=== PATIENT | male | born 1960 | race Caucasian/White ===

== ENCOUNTER 2018-10-22 14:27 | Inpatient (IN) | payer MEDICARE, MEDICAID ==
[~2018-10-22] VITALS: Ht 170.2 cm; Wt 68.9 kg
[2018-10-22] VITALS (21 sets, daily range): BP systolic 80–99; BP diastolic 48–70
[2018-10-22] MEDS: ACETYLCYSTEINE 100MG/ML 10% VIAL 4ML INH SCH (00:34)
[2018-10-22] MEDS ORDERED: ACETAMINOPHEN 650MG SUPP PR STA (15:05)
[2018-10-22] MEDS ORDERED: PIPERACILLIN/TAZ 3.375G PREMIX 50 ML IV ONE (15:15)
[2018-10-22] MEDS ORDERED: ETOMIDATE 2MG/ML 10ML VIAL IV ONE (15:15)
[2018-10-22] MEDS ORDERED: PROPOFOL 10MG/ML 100ML 100 ML IV ONE (15:15)
[2018-10-22] MEDS ORDERED: SODIUM CHLORIDE 0.9% 1000ML BAG (SEPSIS BOLUS) IV ONE (15:15)
[2018-10-22] MEDS ORDERED: VECURONIUM BROMIDE 10 MG/VIAL IV ONE (15:15)
[2018-10-22] MEDS ORDERED: VANCOMYCIN 1 G PREMIX 200 ML IV ONE (15:15)
[2018-10-22] MEDS ORDERED: SUCCINYLCHOLINE CHLORIDE 200MG/10ML IV ONE (15:15)
[2018-10-22] MEDS ORDERED: HYDROCORTISONE SOD SUCCINATE 100 MG/2 ML VIAL IV ONE (15:15)
[2018-10-22 15:25] LABS: HEMATOCRIT. 47.6 % (42.0-52.0); HEMOGLOBIN. 16.1 g/dL (14.0-18.0); MEAN CORPUSCULAR HEMOGLOBIN 31.6 pg (28.0-32.0); MEAN CORPUSCULAR VOLUME 93.2 fL (80.0-94.0); MEAN PLATELET VOLUME 8.9 fl (7.4-10.4); PLATELET 395 x1000/uL (130-400); RED BLOOD CELL COUNT 5.11 mill/uL (4.7-6.1); RED CELL DISTRIBUTION WIDTH 13.2 % (11.6-14.6)
[2018-10-22 15:33] LABS: INR 1.1; PROTHROMBIN TIME 11.5 sec (9.6-11.0)
[2018-10-22 15:35] LABS: CHLORIDE 104 mEq/L (98-107)
[2018-10-22 15:53] LABS: BG CARBOXYHEMOGLOBIN 0.1 % (0.5-1.5); BG DEOXYHEMOGLOBIN 1.7 % (0.0-5.0); BG FRACTION INSPIRED OXYGEN 100; BG HCO3 ACT 21.5 mmol/L (22.0-26.0); BG METHEMOGLOBIN 0.5 % (0.0-1.5); BG OXYGEN SATURATION 98.3 % (92.0-98.5); BG OXYHEMOGLOBIN 97.7 % (94.0-97.0); BG PCO2 40.6 mmHg (35.0-45.0); BG PH 7.341 (7.350-7.450); BG PO2 131.1 mmHg (75.0-100.0); BG SAMPLE SITE RIGHT RADIAL; BG TIDAL VOLUME(mL) 600 mL; BG TOTAL HEMOGLOBIN 16.9 g/dL (12.0-18.0); BG VENT MODE VENT - A/C; BG VENT RATE 12 set
[2018-10-22] MEDS ORDERED: IPRATROPIUM/ALBUTEROL 0.5-3(2.5)MG/3ML NEB HHN PRN (16:15)
[2018-10-22] MEDS ORDERED: PIPERACILLIN/TAZOBACTAM 3.375 G in DEXT 5% WATER 100 ML IV SCH (16:15)
[2018-10-22 16:25] LABS: CLARITY URINE TURBID (CLEAR); COLOR URINE DARK YELLOW (YELLOW); KETONES URINE TRACE (NEGATIVE); LEUKOCYTE ESTERASE URINE TRACE (NEGATIVE); NITRITE URINE NEGATIVE (NEGATIVE); OCCULT BLOOD URINE 3+ (NEGATIVE); PROTEIN URINE 2+ (NEGATIVE); SPECIFIC GRAVITY URINE 1.033 (1.005-1.030)
[2018-10-22] MEDS ORDERED: PIPERACILLIN/TAZ 3.375G PREMIX 50 ML IV SCH (16:30)
[2018-10-22] MEDS ORDERED: ENOXAPARIN 40MG/0.4ML SYR SUBCUT SCH (16:30)
[2018-10-22] MEDS ORDERED: LORAZEPAM 2MG/ML CPJ IV PRN (16:30)
[2018-10-22] MEDS ORDERED: ONDANSETRON HCL 4MG/2ML INJ IV PRN (16:30)
[2018-10-22 16:33] LABS: PLATELET ESTIMATE NORMAL
[2018-10-22 16:45] LABS: *AMPHETAMINES SCREEN URINE NEGATIVE (NEGATIVE); *BARBITURATES SCREEN URINE NEGATIVE (NEGATIVE); *BENZODIAZEPINES SCREEN URINE NEGATIVE (NEGATIVE); *COCAINE SCREEN URINE NEGATIVE (NEGATIVE)
[2018-10-22 16:46] LABS: CANNABINOID URINE SCREEN NEGATIVE (NEGATIVE); METHADONE URINE SCREEN NEGATIVE (NEGATIVE); OPIATES URINE SCREEN NEGATIVE (NEGATIVE); PHENCYCLIDINE URINE SCREEN NEGATIVE (NEGATIVE)
[2018-10-22] MEDS: SODIUM CHLORIDE 0.45% 1,000 ML IV SCH (17:18)
[2018-10-22 17:59] LABS: CARBAMAZEPINE < 0.5 ug/mL (4-12); PHENOBARBITAL < 2.1 ug/mL (15.0-40.0)
[2018-10-22] MEDS ORDERED: LEVETIRACETAM 500MG PREMIX 100 ML IV SCH (18:00)
[2018-10-22] MEDS ORDERED: DEXTROSE 50% WATER 50ML SYRINGE IV PRN (19:45)
[2018-10-22] MEDS: IPRATROPIUM/ALBUTEROL 0.5-3(2.5)MG/3ML NEB HHN SCH (20:15)
[2018-10-22] MEDS: ENOXAPARIN 40MG/0.4ML SYR SUBCUT SCH (20:18)
[2018-10-22] MEDS: LEVETIRACETAM 500MG in SODIUM CHLORIDE 0.9% 100ML IV SCH (20:19)
[2018-10-22] MEDS: PIPERACILLIN/TAZOBACTAM 3.375 G in DEXT 5% WATER 100 ML IV SCH (20:19)
[2018-10-22] MEDS ORDERED: INSULIN LISPRO 100 UNITS/ML SUBCUT SCH (21:00)
[2018-10-22] MEDS ORDERED: PHENYLEPHRINE 20 MG in DEXT 5% WATER 248 ML IV PRN (22:15)
[2018-10-22] MEDS: VANCOMYCIN 750 MG PREMIX 150 ML IV SCH (23:43)
[2018-10-22] MEDS: BLOOD SUGAR DIAGNOSTIC STRIP TEST SCH (23:44)
[2018-10-23] VITALS (105 sets, daily range): BP systolic 67–146; BP diastolic 39–86
[2018-10-23] MEDS ORDERED: INSULIN LISPRO 100 UNITS/ML SUBCUT SCH
[2018-10-23] MEDS: IPRATROPIUM/ALBUTEROL 0.5-3(2.5)MG/3ML NEB HHN SCH ×6 (00:35→20:54)
[2018-10-23] MEDS: PHENYLEPHRINE 40 MG in DEXT 5% WATER 246 ML IV PRN ×2 (02:06→07:02)
[2018-10-23] MEDS: PIPERACILLIN/TAZOBACTAM 3.375 G in DEXT 5% WATER 100 ML IV SCH ×4 (02:06→20:31)
[2018-10-23] MEDS: INSULIN LISPRO 100 UNITS/ML SUBCUT SCH ×5 (05:27→23:38)
[2018-10-23] MEDS: BLOOD SUGAR DIAGNOSTIC STRIP TEST SCH ×4 (05:28→23:38)
[2018-10-23 05:29] LABS: CHLORIDE 105 mEq/L (98-107)
[2018-10-23 05:34] LABS: PHOSPHORUS 2.3 mg/dL (2.5-4.9)
[2018-10-23] MEDS: SODIUM CHLORIDE 0.45% 1,000 ML IV SCH (05:39)
[2018-10-23 05:40] LABS: CREATINE KINASE MB FRACTION 2.7 ng/mL (0.5-3.6)
[2018-10-23] MEDS: VANCOMYCIN 750 MG PREMIX 150 ML IV SCH ×3 (07:52→23:40)
[2018-10-23] MEDS: FAMOTIDINE 20MG/2ML VIAL IV SCH (07:52)
[2018-10-23] MEDS ORDERED: DOCUSATE SODIUM 100MG CAPSULE PO SCH (09:00)
[2018-10-23] MEDS: ACETYLCYSTEINE 100MG/ML 10% VIAL 4ML INH SCH ×2 (09:01→16:38)
[2018-10-23 09:58] LABS: BG BASE EXCESS -1.5 mmol/L (-2.0-2.0); BG CARBOXYHEMOGLOBIN 0.2 % (0.5-1.5); BG DEOXYHEMOGLOBIN 2.9 % (0.0-5.0); BG FRACTION INSPIRED OXYGEN 100; BG HCO3 ACT 21.4 mmol/L (22.0-26.0); BG METHEMOGLOBIN 0.3 % (0.0-1.5); BG OXYGEN SATURATION 97.1 % (92.0-98.5); BG OXYHEMOGLOBIN 96.6 % (94.0-97.0); BG PH 7.456 (7.350-7.450); BG PO2 83.9 mmHg (75.0-100.0); BG SAMPLE SITE RIGHT BRACHIAL; BG TIDAL VOLUME(mL) 500 mL; BG TOTAL HEMOGLOBIN 14.6 g/dL (12.0-18.0); BG VENT MODE VENT - A/C; BG VENT RATE 12 set
[2018-10-23] MEDS: PROPOFOL 10MG/ML 100ML 100 ML IV PRN ×3 (10:14→10:16)
[2018-10-23] MEDS: LEVETIRACETAM 500MG in SODIUM CHLORIDE 0.9% 100ML IV SCH ×2 (10:15→20:53)
[2018-10-23] MEDS: SODIUM CHLORIDE 0.9% 1,000 ML IV SCH ×2 (10:52→20:32)
[2018-10-23] MEDS: PHENYLEPHRINE 80 MG in DEXT 5% WATER 492 ML IV PRN ×2 (11:05→19:31)
[2018-10-23] MEDS: DOCUSATE SODIUM SUGAR FREE 100MG/10ML UDC NG SCH ×2 (11:07→17:11)
[2018-10-23] MEDS: NOREPINEPHRINE 16 MG in DEXT 5% WATER 234 ML IV PRN ×2 (11:41→21:59)
[2018-10-23] MEDS: FENTANYL CITRATE/PF 500 MCG in SODIUM CHLORIDE 0.9% 40 ML IV PRN ×3 (12:02→22:01)
[2018-10-23 13:10] LABS: HEMATOCRIT. 37.9 % (42.0-52.0); HEMOGLOBIN. 12.9 g/dL (14.0-18.0); MEAN CORPUSCULAR HEMOGLOBIN 31.2 pg (28.0-32.0); MEAN CORPUSCULAR VOLUME 91.8 fL (80.0-94.0); MEAN PLATELET VOLUME 8.4 fl (7.4-10.4); PLATELET 305 x1000/uL (130-400); RED BLOOD CELL COUNT 4.13 mill/uL (4.7-6.1); RED CELL DISTRIBUTION WIDTH 13.2 % (11.6-14.6)
[2018-10-23] MEDS: POTASSIUM-SODIUM PHOSPHATE POWDER PACKET GT SCH (17:11)
[2018-10-23 17:23] LABS: PLATELET ESTIMATE NORMAL
[2018-10-23] MEDS: ENOXAPARIN 40MG/0.4ML SYR SUBCUT SCH (20:31)
[2018-10-24] VITALS (95 sets, daily range): BP systolic 71–145; BP diastolic 50–93
[2018-10-24] MEDS: ACETYLCYSTEINE 100MG/ML 10% VIAL 4ML INH SCH ×3 (00:43→15:56)
[2018-10-24] MEDS: IPRATROPIUM/ALBUTEROL 0.5-3(2.5)MG/3ML NEB HHN SCH ×6 (00:44→20:14)
[2018-10-24] MEDS: PIPERACILLIN/TAZOBACTAM 3.375 G in DEXT 5% WATER 100 ML IV SCH ×4 (03:25→20:38)
[2018-10-24] MEDS: FENTANYL CITRATE/PF 500 MCG in SODIUM CHLORIDE 0.9% 40 ML IV PRN ×4 (03:26→20:58)
[2018-10-24] MEDS: PHENYLEPHRINE 80 MG in DEXT 5% WATER 492 ML IV PRN ×2 (05:30→19:10)
[2018-10-24] MEDS: BLOOD SUGAR DIAGNOSTIC STRIP TEST SCH ×4 (05:30→23:44)
[2018-10-24] MEDS: INSULIN LISPRO 100 UNITS/ML SUBCUT SCH ×3 (05:30→18:00)
[2018-10-24] MEDS: SODIUM CHLORIDE 0.9% 1,000 ML IV SCH ×3 (05:31→23:45)
[2018-10-24 06:34] LABS: HEMATOCRIT. 32.5 % (42.0-52.0); HEMOGLOBIN. 11.2 g/dL (14.0-18.0); MEAN CORPUSCULAR HEMOGLOBIN 30.9 pg (28.0-32.0); MEAN CORPUSCULAR VOLUME 89.9 fL (80.0-94.0); MEAN PLATELET VOLUME 8.4 fl (7.4-10.4); PLATELET 271 x1000/uL (130-400); RED BLOOD CELL COUNT 3.61 mill/uL (4.7-6.1); RED CELL DISTRIBUTION WIDTH 13.1 % (11.6-14.6)
[2018-10-24 06:51] LABS: CHLORIDE 101 mEq/L (98-107)
[2018-10-24 06:57] LABS: PHOSPHORUS 1.5 mg/dL (2.5-4.9)
[2018-10-24 06:59] LABS: VANCOMYCIN TROUGH 14.5 ug/mL (5.0-10.0)
[2018-10-24 08:10] LABS: BG BASE EXCESS -1.6 mmol/L (-2.0-2.0); BG CARBOXYHEMOGLOBIN 0.3 % (0.5-1.5); BG DEOXYHEMOGLOBIN 6.1 % (0.0-5.0); BG FRACTION INSPIRED OXYGEN 50; BG HCO3 ACT 22.7 mmol/L (22.0-26.0); BG METHEMOGLOBIN 0.7 % (0.0-1.5); BG OXYGEN SATURATION 93.8 % (92.0-98.5); BG OXYHEMOGLOBIN 92.9 % (94.0-97.0); BG PH 7.405 (7.350-7.450); BG PO2 67.4 mmHg (75.0-100.0); BG SAMPLE SITE RIGHT BRACHIAL; BG TIDAL VOLUME(mL) 500 mL; BG TOTAL HEMOGLOBIN 13.8 g/dL (12.0-18.0); BG VENT MODE VENT - A/C; BG VENT RATE 12 set
[2018-10-24] MEDS: VANCOMYCIN 750 MG PREMIX 150 ML IV SCH (08:44)
[2018-10-24] MEDS: POTASSIUM-SODIUM PHOSPHATE POWDER PACKET GT SCH ×2 (08:50→17:39)
[2018-10-24] MEDS: FAMOTIDINE 20MG/2ML VIAL IV SCH (08:50)
[2018-10-24] MEDS: DOCUSATE SODIUM SUGAR FREE 100MG/10ML UDC NG SCH ×2 (08:50→17:39)
[2018-10-24] MEDS ORDERED: DOCUSATE SODIUM SUGAR FREE 100MG/10ML UDC NG SCH (09:00)
[2018-10-24 10:19] LABS: PLATELET ESTIMATE NORMAL
[2018-10-24] MEDS: LEVETIRACETAM 500MG in SODIUM CHLORIDE 0.9% 100ML IV SCH ×2 (11:21→20:38)
[2018-10-24] MEDS: NOREPINEPHRINE 16 MG in DEXT 5% WATER 234 ML IV PRN ×2 (11:28→23:45)
[2018-10-24] MEDS ORDERED: POTASSIUM CHLORIDE INJ 40 MEQ in DEXT 5% WATER 250 ML IV SCH (11:30)
[2018-10-24] MEDS: VANCOMYCIN 1 G PREMIX 200 ML IV SCH ×2 (13:41→21:23)
[2018-10-24] MEDS: POTASSIUM-SODIUM PHOSPHATE POWDER PACKET PO SCH ×2 (14:30→17:00)
[2018-10-24 16:50] LABS: TOTAL IRON BINDING CAPACITY 236 ug/dL (250-450)
[2018-10-24] MEDS: POTASSIUM CHLORIDE 20MEQ/PACKET GT SCH (19:15)
[2018-10-24] MEDS: ENOXAPARIN 40MG/0.4ML SYR SUBCUT SCH (20:41)
[2018-10-25] VITALS (95 sets, daily range): BP systolic 86–141; BP diastolic 53–91
[2018-10-25] MEDS: IPRATROPIUM/ALBUTEROL 0.5-3(2.5)MG/3ML NEB HHN SCH ×6 (00:34→20:31)
[2018-10-25] MEDS: ACETYLCYSTEINE 100MG/ML 10% VIAL 4ML INH SCH ×3 (00:35→16:30)
[2018-10-25] MEDS: PIPERACILLIN/TAZOBACTAM 3.375 G in DEXT 5% WATER 100 ML IV SCH ×4 (02:22→21:14)
[2018-10-25] MEDS: FENTANYL CITRATE/PF 500 MCG in SODIUM CHLORIDE 0.9% 40 ML IV PRN ×4 (02:22→23:43)
[2018-10-25] MEDS: BLOOD SUGAR DIAGNOSTIC STRIP TEST SCH ×3 (05:14→17:15)
[2018-10-25] MEDS: INSULIN LISPRO 100 UNITS/ML SUBCUT SCH ×4 (05:14→17:15)
[2018-10-25] MEDS: POTASSIUM CHLORIDE 20MEQ/PACKET GT SCH ×2 (05:18→17:20)
[2018-10-25] MEDS: VANCOMYCIN 1 G PREMIX 200 ML IV SCH (05:18)
[2018-10-25 05:47] LABS: HEMATOCRIT. 32.5 % (42.0-52.0); HEMOGLOBIN. 11.2 g/dL (14.0-18.0); MEAN CORPUSCULAR HEMOGLOBIN 31.4 pg (28.0-32.0); MEAN CORPUSCULAR VOLUME 91.7 fL (80.0-94.0); MEAN PLATELET VOLUME 8.4 fl (7.4-10.4); PLATELET 256 x1000/uL (130-400); RED BLOOD CELL COUNT 3.55 mill/uL (4.7-6.1)
[2018-10-25 05:48] LABS: CHLORIDE 101 mEq/L (98-107)
[2018-10-25 05:55] LABS: PHOSPHORUS 1.6 mg/dL (2.5-4.9)
[2018-10-25] MEDS: PHENYLEPHRINE 80 MG in DEXT 5% WATER 492 ML IV PRN (07:55)
[2018-10-25] MEDS: SODIUM CHLORIDE 0.9% 1,000 ML IV SCH (07:57)
[2018-10-25] MEDS: DOCUSATE SODIUM SUGAR FREE 100MG/10ML UDC NG SCH ×2 (08:11→17:20)
[2018-10-25] MEDS: POTASSIUM-SODIUM PHOSPHATE POWDER PACKET PO SCH ×3 (08:11→17:20)
[2018-10-25] MEDS: FAMOTIDINE 20MG/2ML VIAL IV SCH (08:11)
[2018-10-25 08:20] LABS: BG BASE EXCESS 1.5 mmol/L (-2.0-2.0); BG CARBOXYHEMOGLOBIN 0.2 % (0.5-1.5); BG DEOXYHEMOGLOBIN 1.7 % (0.0-5.0); BG FRACTION INSPIRED OXYGEN 50; BG HCO3 ACT 25.5 mmol/L (22.0-26.0); BG METHEMOGLOBIN 0.8 % (0.0-1.5); BG OXYGEN SATURATION 98.3 % (92.0-98.5); BG OXYHEMOGLOBIN 97.3 % (94.0-97.0); BG PCO2 38.3 mmHg (35.0-45.0); BG PH 7.442 (7.350-7.450); BG PO2 138.5 mmHg (75.0-100.0); BG SAMPLE SITE RIGHT RADIAL; BG TIDAL VOLUME(mL) 500 mL; BG TOTAL HEMOGLOBIN 11.6 g/dL (12.0-18.0); BG VENT MODE VENT - A/C; BG VENT RATE 12 set
[2018-10-25] MEDS ORDERED: LACTULOSE 20G/30ML UDC GT SCH (08:30)
[2018-10-25] MEDS ORDERED: LACTULOSE 20G/30ML UDC PO SCH (08:30)
[2018-10-25 08:46] LABS: PLATELET ESTIMATE NORMAL
[2018-10-25] MEDS: LEVETIRACETAM 500MG in SODIUM CHLORIDE 0.9% 100ML IV SCH ×2 (08:56→20:28)
[2018-10-25] MEDS: LACTOBACILLUS GG CAPSULE GT SCH (09:20)
[2018-10-25] MEDS: POTASSIUM PHOS,M-BASIC-D-BASIC 20 MMOL in SODIUM CHLORIDE 0.9% 1,000 ML IV SCH ×2 (11:45→22:51)
[2018-10-25] MEDS: NOREPINEPHRINE 16 MG in DEXT 5% WATER 234 ML IV PRN (13:36)
[2018-10-25] MEDS: ENOXAPARIN 40MG/0.4ML SYR SUBCUT SCH (20:28)
[2018-10-26] VITALS (105 sets, daily range): BP systolic 81–175; BP diastolic 25–126
[2018-10-26] MEDS: ACETYLCYSTEINE 100MG/ML 10% VIAL 4ML INH SCH ×3 (00:06→15:25)
[2018-10-26] MEDS: IPRATROPIUM/ALBUTEROL 0.5-3(2.5)MG/3ML NEB HHN SCH ×6 (00:06→20:41)
[2018-10-26] MEDS: PIPERACILLIN/TAZOBACTAM 3.375 G in DEXT 5% WATER 100 ML IV SCH ×4 (02:43→20:19)
[2018-10-26] MEDS: NOREPINEPHRINE 16 MG in DEXT 5% WATER 234 ML IV PRN ×2 (04:04→23:32)
[2018-10-26] MEDS: FENTANYL CITRATE/PF 500 MCG in SODIUM CHLORIDE 0.9% 40 ML IV PRN ×2 (05:00→11:01)
[2018-10-26 05:18] LABS: BASOPHILS % 0.7 % (0.0-2.0); EOSINOPHILS % 4.6 % (0.0-5.0); HEMATOCRIT. 30.1 % (42.0-52.0); HEMOGLOBIN. 10.4 g/dL (14.0-18.0); MEAN CORPUSCULAR HEMOGLOBIN 31.8 pg (28.0-32.0); MEAN CORPUSCULAR VOLUME 92.1 fL (80.0-94.0); MONOCYTES % 12.9 % (2.0-8.0); NEUTROPHILS % 71.8 % (40.0-76.0); PLATELET 223 x1000/uL (130-400); RED BLOOD CELL COUNT 3.27 mill/uL (4.7-6.1)
[2018-10-26 05:27] LABS: CHLORIDE 100 mEq/L (98-107)
[2018-10-26 05:35] LABS: PHOSPHORUS 2.7 mg/dL (2.5-4.9)
[2018-10-26] MEDS: BLOOD SUGAR DIAGNOSTIC STRIP TEST SCH ×4 (05:46→17:42)
[2018-10-26] MEDS: INSULIN LISPRO 100 UNITS/ML SUBCUT SCH ×4 (05:46→17:42)
[2018-10-26] MEDS: POTASSIUM CHLORIDE 20MEQ/PACKET GT SCH ×2 (05:46→18:32)
[2018-10-26] MEDS: POTASSIUM PHOS,M-BASIC-D-BASIC 20 MMOL in SODIUM CHLORIDE 0.9% 1,000 ML IV SCH (07:49)
[2018-10-26] MEDS: LEVETIRACETAM 500MG in SODIUM CHLORIDE 0.9% 100ML IV SCH ×2 (08:21→21:36)
[2018-10-26] MEDS: FAMOTIDINE 20MG/2ML VIAL IV SCH (08:21)
[2018-10-26] MEDS: LACTOBACILLUS GG CAPSULE GT SCH (08:21)
[2018-10-26] MEDS: DOCUSATE SODIUM SUGAR FREE 100MG/10ML UDC NG SCH ×2 (08:22→16:34)
[2018-10-26] MEDS: POTASSIUM-SODIUM PHOSPHATE POWDER PACKET PO SCH ×3 (08:36→16:35)
[2018-10-26] MEDS ORDERED: SORBITOL 70% SOLN 30ML GT NR (09:00)
[2018-10-26] MEDS ORDERED: NA PHOS,M-B/NA PHOS,DI-BA ENEMA 118ML PR NR (09:00)
[2018-10-26 09:17] LABS: BG BASE EXCESS 1.8 mmol/L (-2.0-2.0); BG CARBOXYHEMOGLOBIN 0.3 % (0.5-1.5); BG DEOXYHEMOGLOBIN 1.2 % (0.0-5.0); BG FRACTION INSPIRED OXYGEN 40; BG HCO3 ACT 26.4 mmol/L (22.0-26.0); BG METHEMOGLOBIN 0.1 % (0.0-1.5); BG OXYGEN SATURATION 98.8 % (92.0-98.5); BG OXYHEMOGLOBIN 98.4 % (94.0-97.0); BG PH 7.426 (7.350-7.450); BG PO2 155.6 mmHg (75.0-100.0); BG SAMPLE SITE RIGHT BRACHIAL; BG TIDAL VOLUME(mL) 500 mL; BG TOTAL HEMOGLOBIN 11.2 g/dL (12.0-18.0); BG VENT MODE VENT - A/C; BG VENT RATE 12 set
[2018-10-26] MEDS: MIDODRINE HCL 5MG TABLET GT SCH ×3 (09:42→16:35)
[2018-10-26] MEDS: LORAZEPAM 2MG/ML CPJ IV PRN ×2 (10:44→16:34)
[2018-10-26] MEDS: AMIKACIN SULFATE 750 MG in SODIUM CHLORIDE 0.9% 100 ML IV SCH (18:32)
[2018-10-26 19:15] LABS: BARBITURATE SCREEN Negative ug/mL (Cutoff:0.1); BENZODIAZEPINE SCREEN Negative ng/mL (Cutoff:20); OPIATES SCREEN Negative ng/mL (Cutoff:5); PHENCYCLIDINE SCREEN Negative ng/mL (Cutoff:8)
[2018-10-26] MEDS: ENOXAPARIN 40MG/0.4ML SYR SUBCUT SCH (20:23)
[2018-10-27] VITALS (80 sets, daily range): BP systolic 85–142; BP diastolic 29–94
[2018-10-27] MEDS: IPRATROPIUM/ALBUTEROL 0.5-3(2.5)MG/3ML NEB HHN SCH ×6 (00:27→20:21)
[2018-10-27] MEDS: ACETYLCYSTEINE 100MG/ML 10% VIAL 4ML INH SCH ×3 (00:28→15:31)
[2018-10-27] MEDS: LORAZEPAM 2MG/ML CPJ IV PRN (02:06)
[2018-10-27] MEDS: PIPERACILLIN/TAZOBACTAM 3.375 G in DEXT 5% WATER 100 ML IV SCH (02:23)
[2018-10-27] MEDS: POTASSIUM CHLORIDE 20MEQ/PACKET GT SCH ×2 (05:12→17:19)
[2018-10-27] MEDS: AMIKACIN SULFATE 750 MG in SODIUM CHLORIDE 0.9% 100 ML IV SCH ×2 (05:13→17:18)
[2018-10-27 05:19] LABS: BASOPHILS % 0.6 % (0.0-2.0); EOSINOPHILS % 3.7 % (0.0-5.0); HEMATOCRIT. 30.2 % (42.0-52.0); HEMOGLOBIN. 10.5 g/dL (14.0-18.0); MEAN CORPUSCULAR HEMOGLOBIN 31.6 pg (28.0-32.0); MEAN CORPUSCULAR VOLUME 90.8 fL (80.0-94.0); MEAN PLATELET VOLUME 8.1 fl (7.4-10.4); MONOCYTES % 12.7 % (2.0-8.0); PLATELET 255 x1000/uL (130-400); RED BLOOD CELL COUNT 3.32 mill/uL (4.7-6.1)
[2018-10-27] MEDS: BLOOD SUGAR DIAGNOSTIC STRIP TEST SCH ×4 (05:22→18:00)
[2018-10-27] MEDS: INSULIN LISPRO 100 UNITS/ML SUBCUT SCH ×4 (05:22→18:00)
[2018-10-27 05:23] LABS: CHLORIDE 99 mEq/L (98-107)
[2018-10-27 05:29] LABS: PHOSPHORUS 2.7 mg/dL (2.5-4.9)
[2018-10-27] MEDS: POTASSIUM-SODIUM PHOSPHATE POWDER PACKET PO SCH ×3 (08:44→17:19)
[2018-10-27] MEDS: FAMOTIDINE 20MG/2ML VIAL IV SCH (08:44)
[2018-10-27] MEDS: LACTOBACILLUS GG CAPSULE GT SCH (08:44)
[2018-10-27] MEDS: DOCUSATE SODIUM SUGAR FREE 100MG/10ML UDC NG SCH ×2 (08:44→17:18)
[2018-10-27] MEDS: MIDODRINE HCL 5MG TABLET GT SCH ×3 (08:48→17:19)
[2018-10-27 08:49] LABS: BG BASE EXCESS 2.2 mmol/L (-2.0-2.0); BG CARBOXYHEMOGLOBIN 0.3 % (0.5-1.5); BG DEOXYHEMOGLOBIN 1.3 % (0.0-5.0); BG FRACTION INSPIRED OXYGEN 40; BG HCO3 ACT 26.1 mmol/L (22.0-26.0); BG METHEMOGLOBIN 0.3 % (0.0-1.5); BG OXYGEN SATURATION 98.7 % (92.0-98.5); BG OXYHEMOGLOBIN 98.1 % (94.0-97.0); BG PCO2 37.9 mmHg (35.0-45.0); BG PH 7.456 (7.350-7.450); BG PO2 132.1 mmHg (75.0-100.0); BG PRESSURE SUPPORT 12; BG SAMPLE SITE RIGHT RADIAL; BG TIDAL VOLUME(mL) 500 mL; BG TOTAL HEMOGLOBIN 11.3 g/dL (12.0-18.0); BG VENT MODE VENT - SIMV; BG VENT RATE 8 set
[2018-10-27] MEDS: LEVETIRACETAM 500MG TABLET PO SCH ×2 (08:49→19:56)
[2018-10-27 13:39] LABS: BG BASE EXCESS 4.4 mmol/L (-2.0-2.0); BG CARBOXYHEMOGLOBIN 0.3 % (0.5-1.5); BG DEOXYHEMOGLOBIN 1.6 % (0.0-5.0); BG FRACTION INSPIRED OXYGEN 35; BG HCO3 ACT 27.9 mmol/L (22.0-26.0); BG METHEMOGLOBIN 0.2 % (0.0-1.5); BG OXYGEN SATURATION 98.4 % (92.0-98.5); BG OXYHEMOGLOBIN 97.9 % (94.0-97.0); BG PCO2 37.3 mmHg (35.0-45.0); BG PH 7.491 (7.350-7.450); BG PO2 116.9 mmHg (75.0-100.0); BG PRESSURE SUPPORT 8; BG SAMPLE SITE RIGHT BRACHIAL; BG TOTAL HEMOGLOBIN 11.6 g/dL (12.0-18.0); BG VENT MODE VENT - CPAP
[2018-10-27] MEDS ORDERED: LORAZEPAM 2MG/ML CPJ IV NR (15:30)
[2018-10-27] MEDS: NOREPINEPHRINE 16 MG in DEXT 5% WATER 234 ML IV PRN (18:48)
[2018-10-27] MEDS: ENOXAPARIN 40MG/0.4ML SYR SUBCUT SCH (19:56)
[2018-10-28] VITALS (44 sets, daily range): BP systolic 80–160; BP diastolic 51–91
[2018-10-28] MEDS: BLOOD SUGAR DIAGNOSTIC STRIP TEST SCH ×4 (00:03→17:41)
[2018-10-28] MEDS: IPRATROPIUM/ALBUTEROL 0.5-3(2.5)MG/3ML NEB HHN SCH ×6 (00:26→20:44)
[2018-10-28] MEDS: ACETAMINOPHEN 650MG/20.3ML UDC GT PRN ×2 (01:08→06:31)
[2018-10-28 05:17] LABS: HEMOGLOBIN. 10.8 g/dL (14.0-18.0); MEAN CORPUSCULAR HEMOGLOBIN 31.6 pg (28.0-32.0); MEAN CORPUSCULAR VOLUME 90.9 fL (80.0-94.0); PLATELET 281 x1000/uL (130-400); RED BLOOD CELL COUNT 3.42 mill/uL (4.7-6.1); RED CELL DISTRIBUTION WIDTH 12.9 % (11.6-14.6)
[2018-10-28 05:20] LABS: CHLORIDE 102 mEq/L (98-107)
[2018-10-28 05:27] LABS: PHOSPHORUS 3.4 mg/dL (2.5-4.9)
[2018-10-28] MEDS: INSULIN LISPRO 100 UNITS/ML SUBCUT SCH ×4 (06:00→17:40)
[2018-10-28] MEDS: POTASSIUM CHLORIDE 20MEQ/PACKET GT SCH ×2 (06:31→17:03)
[2018-10-28] MEDS: AMIKACIN SULFATE 750 MG in SODIUM CHLORIDE 0.9% 100 ML IV SCH (07:40)
[2018-10-28 08:45] LABS: BG BASE EXCESS 0.2 mmol/L (-2.0-2.0); BG CARBOXYHEMOGLOBIN 0.3 % (0.5-1.5); BG DEOXYHEMOGLOBIN 4.1 % (0.0-5.0); BG FRACTION INSPIRED OXYGEN 21; BG HCO3 ACT 22.5 mmol/L (22.0-26.0); BG METHEMOGLOBIN 0.2 % (0.0-1.5); BG OXYGEN SATURATION 95.9 % (92.0-98.5); BG OXYHEMOGLOBIN 95.4 % (94.0-97.0); BG PCO2 29.4 mmHg (35.0-45.0); BG PH 7.502 (7.350-7.450); BG PO2 78.1 mmHg (75.0-100.0); BG SAMPLE SITE RIGHT BRACHIAL; BG TOTAL HEMOGLOBIN 11.9 g/dL (12.0-18.0); BG VENT MODE ROOM AIR
[2018-10-28] MEDS ORDERED: FLUDROCORTISONE ACETATE 0.1MG TABLET PO SCH (09:15)
[2018-10-28] MEDS: LEVETIRACETAM 500MG TABLET PO SCH ×2 (09:17→21:33)
[2018-10-28] MEDS: POTASSIUM-SODIUM PHOSPHATE POWDER PACKET PO SCH ×3 (09:17→17:03)
[2018-10-28] MEDS: DOCUSATE SODIUM SUGAR FREE 100MG/10ML UDC NG SCH ×2 (09:18→17:00)
[2018-10-28] MEDS: LACTOBACILLUS GG CAPSULE GT SCH (09:18)
[2018-10-28] MEDS: FAMOTIDINE 20MG/2ML VIAL IV SCH (09:18)
[2018-10-28] MEDS: MIDODRINE HCL 5MG TABLET GT SCH ×4 (09:27→21:33)
[2018-10-28 10:22] LABS: PLATELET ESTIMATE NORMAL
[2018-10-28] MEDS: ACETYLCYSTEINE 100MG/ML 10% VIAL 4ML INH SCH (15:10)
[2018-10-28] MEDS ORDERED: AMIKACIN SULFATE 600 MG in SODIUM CHLORIDE 0.9% 100 ML IV SCH (21:00)
[2018-10-28] MEDS: ENOXAPARIN 40MG/0.4ML SYR SUBCUT SCH (21:34)
[2018-10-29] VITALS (50 sets, daily range): BP systolic 83–116; BP diastolic 31–74
[2018-10-29] MEDS: IPRATROPIUM/ALBUTEROL 0.5-3(2.5)MG/3ML NEB HHN SCH ×5 (00:15→20:59)
[2018-10-29 05:29] LABS: BASOPHILS % 1.1 % (0.0-2.0); EOSINOPHILS % 2.8 % (0.0-5.0); HEMATOCRIT. 31.6 % (42.0-52.0); HEMOGLOBIN. 10.9 g/dL (14.0-18.0); LYMPHOCYTES % 11.3 % (20.0-50.0); MEAN CORPUSCULAR HEMOGLOBIN 31.5 pg (28.0-32.0); MEAN CORPUSCULAR VOLUME 91.4 fL (80.0-94.0); MEAN PLATELET VOLUME 7.8 fl (7.4-10.4); MONOCYTES % 11.4 % (2.0-8.0); NEUTROPHILS % 73.4 % (40.0-76.0); PLATELET 332 x1000/uL (130-400); RED BLOOD CELL COUNT 3.46 mill/uL (4.7-6.1); RED CELL DISTRIBUTION WIDTH 13.3 % (11.6-14.6)
[2018-10-29] MEDS: NOREPINEPHRINE 16 MG in DEXT 5% WATER 234 ML IV PRN (05:33)
[2018-10-29] MEDS: POTASSIUM CHLORIDE 20MEQ/PACKET GT SCH ×2 (05:37→20:44)
[2018-10-29 05:41] LABS: CHLORIDE 105 mEq/L (98-107)
[2018-10-29] MEDS: BLOOD SUGAR DIAGNOSTIC STRIP TEST SCH ×4 (06:00→18:00)
[2018-10-29] MEDS: INSULIN LISPRO 100 UNITS/ML SUBCUT SCH ×3 (06:00→11:58)
[2018-10-29] MEDS: LEVETIRACETAM 500MG TABLET PO SCH ×2 (08:50→20:43)
[2018-10-29] MEDS: FAMOTIDINE 20MG/2ML VIAL IV SCH (08:50)
[2018-10-29] MEDS: LACTOBACILLUS GG CAPSULE GT SCH (08:50)
[2018-10-29] MEDS: POTASSIUM-SODIUM PHOSPHATE POWDER PACKET PO SCH ×3 (08:50→16:35)
[2018-10-29] MEDS: DOCUSATE SODIUM SUGAR FREE 100MG/10ML UDC NG SCH ×2 (08:50→16:35)
[2018-10-29] MEDS: MIDODRINE HCL 5MG TABLET GT SCH ×4 (08:51→20:44)
[2018-10-29] MEDS ORDERED: FLUDROCORTISONE ACETATE 0.1MG TABLET PO SCH (09:00)
[2018-10-29] MEDS ORDERED: FLUDROCORTISONE ACETATE 0.1MG TABLET GT NR (11:15)
[2018-10-29] MEDS: GENTAMICIN SULFATE 160 MG in SODIUM CHLORIDE 0.9% 100 ML IV SCH (13:27)
[2018-10-29] MEDS: ENOXAPARIN 40MG/0.4ML SYR SUBCUT SCH (20:43)
[2018-10-30] VITALS: BP 122/76
[2018-10-30] MEDS: IPRATROPIUM/ALBUTEROL 0.5-3(2.5)MG/3ML NEB HHN SCH ×6 (00:58→20:11)
[2018-10-30] MEDS: GENTAMICIN SULFATE 160 MG in SODIUM CHLORIDE 0.9% 100 ML IV SCH ×2 (01:42→13:17)
[2018-10-30 04:00] VITALS: BP 92/62
[2018-10-30] MEDS: INSULIN LISPRO 100 UNITS/ML SUBCUT SCH ×3 (06:00→18:00)
[2018-10-30] MEDS: POTASSIUM CHLORIDE 20MEQ/PACKET GT SCH ×2 (06:07→17:09)
[2018-10-30] MEDS: BLOOD SUGAR DIAGNOSTIC STRIP TEST SCH ×4 (06:27→18:19)
[2018-10-30 07:41] LABS: BASOPHILS % 0.6 % (0.0-2.0); CHLORIDE 105 mEq/L (98-107); EOSINOPHILS % 3.6 % (0.0-5.0); HEMATOCRIT. 31.1 % (42.0-52.0); HEMOGLOBIN. 10.7 g/dL (14.0-18.0); LYMPHOCYTES % 12.4 % (20.0-50.0); MEAN CORPUSCULAR HEMOGLOBIN 31.5 pg (28.0-32.0); MEAN CORPUSCULAR VOLUME 91.5 fL (80.0-94.0); MEAN PLATELET VOLUME 7.7 fl (7.4-10.4); MONOCYTES % 11.5 % (2.0-8.0); NEUTROPHILS % 71.9 % (40.0-76.0); PLATELET 298 x1000/uL (130-400); RED CELL DISTRIBUTION WIDTH 13.5 % (11.6-14.6)
[2018-10-30 08:00] VITALS: BP 102/59
[2018-10-30] MEDS: FAMOTIDINE 20MG/2ML VIAL IV SCH (08:49)
[2018-10-30] MEDS: POTASSIUM-SODIUM PHOSPHATE POWDER PACKET PO SCH ×3 (08:51→17:09)
[2018-10-30] MEDS: LEVETIRACETAM 500MG TABLET PO SCH ×2 (08:51→20:29)
[2018-10-30] MEDS: MIDODRINE HCL 5MG TABLET GT SCH ×4 (09:03→20:33)
[2018-10-30] MEDS: DOCUSATE SODIUM SUGAR FREE 100MG/10ML UDC NG SCH ×2 (09:34→17:09)
[2018-10-30 12:00] VITALS: BP 100/65
[2018-10-30] MEDS: FLUDROCORTISONE ACETATE 0.1MG TABLET PO SCH (13:18)
[2018-10-30] MEDS: LACTOBACILLUS GG CAPSULE GT SCH (13:18)
[2018-10-30 15:42] VITALS: BP 94/57
[2018-10-30 20:00] VITALS: BP 126/70
[2018-10-30] MEDS: ENOXAPARIN 40MG/0.4ML SYR SUBCUT SCH (20:28)
[2018-10-31] VITALS: BP 130/76
[2018-10-31] MEDS: IPRATROPIUM/ALBUTEROL 0.5-3(2.5)MG/3ML NEB HHN SCH ×6 (00:11→22:09)
[2018-10-31] MEDS: BLOOD SUGAR DIAGNOSTIC STRIP TEST SCH ×4 (00:17→17:27)
[2018-10-31] MEDS: GENTAMICIN SULFATE 160 MG in SODIUM CHLORIDE 0.9% 100 ML IV SCH (01:37)
[2018-10-31 04:00] VITALS: BP 115/46
[2018-10-31] MEDS: INSULIN LISPRO 100 UNITS/ML SUBCUT SCH ×4 (06:00→17:12)
[2018-10-31] MEDS: POTASSIUM CHLORIDE 20MEQ/PACKET GT SCH ×2 (06:04→17:02)
[2018-10-31 06:37] LABS: BASOPHILS % 0.9 % (0.0-2.0); HEMATOCRIT. 32.6 % (42.0-52.0); HEMOGLOBIN. 11.2 g/dL (14.0-18.0); LYMPHOCYTES % 10.9 % (20.0-50.0); MEAN CORPUSCULAR HEMOGLOBIN 31.2 pg (28.0-32.0); MEAN CORPUSCULAR VOLUME 91.1 fL (80.0-94.0); MEAN PLATELET VOLUME 7.6 fl (7.4-10.4); NEUTROPHILS % 78.2 % (40.0-76.0); PLATELET 345 x1000/uL (130-400); RED BLOOD CELL COUNT 3.58 mill/uL (4.7-6.1); RED CELL DISTRIBUTION WIDTH 13.2 % (11.6-14.6)
[2018-10-31 06:44] LABS: CHLORIDE 108 mEq/L (98-107)
[2018-10-31 06:53] LABS: GENTAMICIN RANDOM 7.2 ug/mL
[2018-10-31 08:00] VITALS: BP 102/65
[2018-10-31] MEDS: MIDODRINE HCL 5MG TABLET GT SCH ×4 (08:16→21:34)
[2018-10-31] MEDS: FAMOTIDINE 20MG/2ML VIAL IV SCH (08:17)
[2018-10-31] MEDS: LEVETIRACETAM 500MG TABLET PO SCH ×2 (08:17→21:34)
[2018-10-31] MEDS: POTASSIUM-SODIUM PHOSPHATE POWDER PACKET PO SCH ×3 (08:17→17:02)
[2018-10-31] MEDS: DOCUSATE SODIUM SUGAR FREE 100MG/10ML UDC NG SCH ×2 (08:17→17:02)
[2018-10-31] MEDS: FLUDROCORTISONE ACETATE 0.1MG TABLET PO SCH (08:17)
[2018-10-31] MEDS: LACTOBACILLUS GG CAPSULE GT SCH (08:18)
[2018-10-31 11:48] VITALS: BP 119/78
[2018-10-31] MEDS: METOPROLOL TARTRATE 25MG TABLET PO SCH ×2 (12:10→21:33)
[2018-10-31 16:13] VITALS: BP 96/67
[2018-10-31 20:00] VITALS: BP 101/71
[2018-10-31] MEDS ORDERED: GENTAMICIN SULFATE 160 MG in SODIUM CHLORIDE 0.9% 100 ML IV SCH (21:00)
[2018-10-31] MEDS: ENOXAPARIN 40MG/0.4ML SYR SUBCUT SCH (21:34)
[2018-11-01] VITALS: BP 108/73
[2018-11-01] MEDS: BLOOD SUGAR DIAGNOSTIC STRIP TEST SCH ×4 (00:29→17:24)
[2018-11-01] MEDS: IPRATROPIUM/ALBUTEROL 0.5-3(2.5)MG/3ML NEB HHN SCH ×4 (02:15→16:00)
[2018-11-01 04:00] VITALS: BP 112/76
[2018-11-01] MEDS: INSULIN LISPRO 100 UNITS/ML SUBCUT SCH ×4 (05:50→17:24)
[2018-11-01] MEDS: POTASSIUM CHLORIDE 20MEQ/PACKET GT SCH ×2 (06:29→14:07)
[2018-11-01 08:00] VITALS: BP 121/73
[2018-11-01] MEDS: METOPROLOL TARTRATE 25MG TABLET PO SCH (08:29)
[2018-11-01] MEDS: LEVETIRACETAM 500MG TABLET PO SCH (08:29)
[2018-11-01] MEDS: FLUDROCORTISONE ACETATE 0.1MG TABLET PO SCH (08:29)
[2018-11-01] MEDS: FAMOTIDINE 20MG/2ML VIAL IV SCH (08:29)
[2018-11-01] MEDS: POTASSIUM-SODIUM PHOSPHATE POWDER PACKET PO SCH ×3 (08:29→17:24)
[2018-11-01] MEDS: MIDODRINE HCL 5MG TABLET GT SCH ×3 (08:30→17:24)
[2018-11-01] MEDS: LACTOBACILLUS GG CAPSULE GT SCH (08:30)
[2018-11-01] MEDS: DOCUSATE SODIUM SUGAR FREE 100MG/10ML UDC NG SCH ×2 (09:52→17:23)
[2018-11-01 11:50] VITALS: BP 100/55
[2018-11-01 15:03] VITALS: BP 120/71
[2018-11-01 16:05] VITALS: BP 108/56
== END 2018-11-01 18:47 | DRG 870 ==
LOC: ER 14:27 → MICUSO 17:02 → EDBEDREQ 17:11 → ENRESERV 17:35 → 7WST 10-29 17:20
PROVIDERS: ADMIT Internal Medicine Geriatric Medicine; ATTEND Internal Medicine Geriatric Medicine
PROC: 0BH18EZ Insertion of Endotracheal Airway into Trachea, Via Natural or Artificial Opening Endoscopic (ICD-10-PCS; principal; 2018-10-22)
PROC: 5A1955Z Respiratory Ventilation, Greater than 96 Consecutive Hours (ICD-10-PCS; 2018-10-22)
PROC: 06HY33Z Insertion of Infusion Device into Lower Vein, Percutaneous Approach (ICD-10-PCS; 2018-10-22)
DX: A41.50 Gram-negative sepsis, unspecified (principal); J96.00 Acute respiratory failure, unspecified whether with hypoxia or hypercapnia; J69.0 Pneumonitis due to inhalation of food and vomit; G92 Toxic encephalopathy; R65.21 Severe sepsis with septic shock; E43 Unspecified severe protein-calorie malnutrition; J15.1 Pneumonia due to Pseudomonas; N39.0 Urinary tract infection, site not specified; N17.9 Acute kidney failure, unspecified; E87.1 Hypo-osmolality and hyponatremia; J44.0 Chronic obstructive pulmonary disease with (acute) lower respiratory infection; E87.6 Hypokalemia; E83.39 Other disorders of phosphorus metabolism; R73.9 Hyperglycemia, unspecified; G40.909 Epilepsy, unspecified, not intractable, without status epilepticus; D64.9 Anemia, unspecified; K59.00 Constipation, unspecified; Z93.1 Gastrostomy status; Z86.73 Personal history of transient ischemic attack (TIA), and cerebral infarction without residual deficits; Z68.23 Body mass index [BMI] 23.0-23.9, adult; Z79.899 Other long term (current) drug therapy
CPT/HCPCS: 36415; 36600; 71045; 74018; 80048; 80150; 80156; 80170; 80184; 80185; 80202; 80305; 80307; 81003; 82375; 82553; 82805; 82962; 83036; 83540; 83550; 83605; 83735; 83880; 84100; 84145; 84484; 87070; 87077; 87186; 93005; 93306; 93970; 94002; 94003; 94640; 96365; 99291; A6261; J0278; J1580; J1650; J1720; J1815; J1953; J2060; J2370; J2543; J2704; J3010; J3370; J3480; J3490; J7030; J7050; J7060; J7070; J7608; J7620

== ENCOUNTER 2019-04-12 19:16 | Inpatient (IN) | payer MEDICARE, MEDICAID ==
[~2019-04-12] VITALS: Ht 175.3 cm; Wt 68.2 kg
[2019-04-12] MEDS ORDERED: PIPERACILLIN/TAZ 3.375G PREMIX 50 ML IV ONE (19:30)
[2019-04-12] MEDS ORDERED: VANCOMYCIN 1 G PREMIX 200 ML IV ONE (19:30)
[2019-04-12] MEDS ORDERED: LEVOFLOXACIN 500MG PREMIX 100 ML IV ONE (19:30)
[2019-04-12] MEDS ORDERED: LORAZEPAM 2MG/ML CPJ IV ONE (19:45)
[2019-04-12] MEDS ORDERED: ETOMIDATE 2MG/ML 10ML VIAL IV ONE (19:45)
[2019-04-12] MEDS ORDERED: MIDAZOLAM HCL 50 MG in DEXTROSE 5% WATER 40 ML IV ONE (19:45)
[2019-04-12] MEDS ORDERED: SUCCINYLCHOLINE CHLORIDE 200MG/10ML IV ONE (19:45)
[2019-04-12] MEDS ORDERED: VECURONIUM BROMIDE 10 MG/VIAL IV ONE (19:45)
[2019-04-12 19:49] LABS: HEMATOCRIT. 44.2 % (42.0-52.0); HEMOGLOBIN. 15.1 g/dL (14.0-18.0); MEAN CORPUSCULAR HEMOGLOBIN 32.5 pg (28.0-32.0); MEAN PLATELET VOLUME 8.5 fl (7.4-10.4); PLATELET 318 x1000/uL (130-400); RED BLOOD CELL COUNT 4.65 mill/uL (4.7-6.1); RED CELL DISTRIBUTION WIDTH 12.9 % (11.6-14.6)
[2019-04-12 19:50] LABS: INR 1.2; PROTHROMBIN TIME 12.9 sec (9.6-11.0)
[2019-04-12 19:51] LABS: CHLORIDE 100 mEq/L (98-107)
[2019-04-12] MEDS ORDERED: SODIUM CHLORIDE 0.9% 1000ML BAG (SEPSIS BOLUS) IV ONE (20:30)
[2019-04-12 20:32] LABS: CLARITY URINE TURBID (CLEAR); COLOR URINE DARK YELLOW (YELLOW); KETONES URINE TRACE (NEGATIVE); LEUKOCYTE ESTERASE URINE 1+ (NEGATIVE); NITRITE URINE NEGATIVE (NEGATIVE); OCCULT BLOOD URINE 3+ (NEGATIVE); PROTEIN URINE 2+ (NEGATIVE); SPECIFIC GRAVITY URINE 1.022 (1.005-1.030)
[2019-04-12 20:44] LABS: BG BASE EXCESS -8.9 mmol/L (-2.0-2.0); BG CARBOXYHEMOGLOBIN 0.3 % (0.5-1.5); BG DEOXYHEMOGLOBIN 2.6 % (0.0-5.0); BG FRACTION INSPIRED OXYGEN 100; BG HCO3 ACT 16.7 mmol/L (22.0-26.0); BG METHEMOGLOBIN 0.3 % (0.0-1.5); BG OXYGEN SATURATION 97.4 % (92.0-98.5); BG OXYHEMOGLOBIN 96.8 % (94.0-97.0); BG PCO2 35.4 mmHg (35.0-45.0); BG PH 7.292 (7.350-7.450); BG PO2 111.1 mmHg (75.0-100.0); BG SAMPLE SITE LEFT FEMORAL; BG TIDAL VOLUME(mL) 500 mL; BG TOTAL HEMOGLOBIN 12.9 g/dL (12.0-18.0); BG VENT MODE VENT - A/C; BG VENT RATE 14 set
[2019-04-12 21:17] LABS: ATYPICAL LYMPHOCYTES 1; PLATELET ESTIMATE NORMAL
[2019-04-12] MEDS ORDERED: NOREPINEPHRINE 4 MG in DEXT 5% WATER 246 ML IV ONE (21:30)
[2019-04-12] MEDS ORDERED: NOREPINEPHRINE 4MG/250ML PMX 250 ML IV ONE (21:30)
[2019-04-12] MEDS ORDERED: CLONIDINE 0.1MG TABLET PO PRN (22:00)
[2019-04-12] MEDS ORDERED: VANCOMYCIN 1 G PREMIX 200 ML IV SCH (22:00)
[2019-04-12] MEDS ORDERED: IPRATROPIUM/ALBUTEROL 0.5-3(2.5)MG/3ML NEB HHN SCH (22:00)
[2019-04-12] MEDS ORDERED: ENOXAPARIN 40MG/0.4ML SYR SUBCUT SCH (22:00)
[2019-04-12 23:11] LABS: CREATINE KINASE MB FRACTION 14.1 ng/mL (0.5-3.6)
[2019-04-13] VITALS (113 sets, daily range): BP systolic 43–149; BP diastolic 14–107
[2019-04-13] MEDS ORDERED: NOREPINEPHRINE 4MG/250ML PMX 250 ML IV PRN (00:45)
[2019-04-13] MEDS ORDERED: MIDAZOLAM HCL 50 MG in DEXTROSE 5% WATER 50ML IV PRN (01:00)
[2019-04-13] MEDS ORDERED: IPRATROPIUM/ALBUTEROL 0.5-3(2.5)MG/3ML NEB HHN PRN (02:00)
[2019-04-13] MEDS ORDERED: PROPOFOL 10MG/ML 100ML 100 ML IV PRN (02:00)
[2019-04-13] MEDS ORDERED: NOREPINEPHRINE 4 MG in DEXT 5% WATER 246 ML IV PRN (02:00)
[2019-04-13] MEDS ORDERED: SODIUM BICARBONATE 8.4% 1 MEQ/ML 50ML SYR IV ONE (02:00)
[2019-04-13] MEDS ORDERED: PHENYLEPHRINE 40 MG in DEXT 5% WATER 246 ML IV PRN (03:00)
[2019-04-13] MEDS: NOREPINEPHRINE 32 MG in DEXT 5% WATER 468 ML IV PRN ×2 (03:04→21:39)
[2019-04-13] MEDS: IPRATROPIUM/ALBUTEROL 0.5-3(2.5)MG/3ML NEB HHN SCH ×5 (04:10→20:43)
[2019-04-13 06:00] LABS: BASOPHILS % 0.2 % (0.0-2.0); HEMATOCRIT. 40.5 % (42.0-52.0); HEMOGLOBIN. 14.5 g/dL (14.0-18.0); LYMPHOCYTES % 13.6 % (20.0-50.0); MEAN CORPUSCULAR HEMOGLOBIN 33.4 pg (28.0-32.0); MEAN CORPUSCULAR VOLUME 93.6 fL (80.0-94.0); MEAN PLATELET VOLUME 8.8 fl (7.4-10.4); MONOCYTES % 2.7 % (2.0-8.0); NEUTROPHILS % 83.5 % (40.0-76.0); PLATELET 312 x1000/uL (130-400); RED BLOOD CELL COUNT 4.33 mill/uL (4.7-6.1)
[2019-04-13 06:01] LABS: CHLORIDE 104 mEq/L (98-107)
[2019-04-13] MEDS: PIPERACILLIN/TAZOBACTAM 3.375 G in DEXT 5% WATER 100 ML IV SCH ×2 (06:17→13:14)
[2019-04-13 06:22] LABS: CREATINE KINASE MB FRACTION 21.1 ng/mL (0.5-3.6)
[2019-04-13] MEDS ORDERED: ENOXAPARIN 30MG/0.3ML SYR SUBCUT SCH (09:00)
[2019-04-13] MEDS ORDERED: FAMOTIDINE 20MG/2ML VIAL IV SCH (09:00)
[2019-04-13 09:06] LABS: BG BASE EXCESS -3.9 mmol/L (-2.0-2.0); BG CARBOXYHEMOGLOBIN 0.1 % (0.5-1.5); BG DEOXYHEMOGLOBIN 12.4 % (0.0-5.0); BG FRACTION INSPIRED OXYGEN 100; BG HCO3 ACT 21.5 mmol/L (22.0-26.0); BG METHEMOGLOBIN 0.2 % (0.0-1.5); BG OXYGEN SATURATION 87.6 % (92.0-98.5); BG OXYHEMOGLOBIN 87.3 % (94.0-97.0); BG PCO2 40.3 mmHg (35.0-45.0); BG PH 7.345 (7.350-7.450); BG PO2 51.9 mmHg (75.0-100.0); BG SAMPLE SITE RIGHT RADIAL; BG TIDAL VOLUME(mL) 500 mL; BG TOTAL HEMOGLOBIN 15.5 g/dL (12.0-18.0); BG VENT MODE VENT - A/C; BG VENT RATE 18 set
[2019-04-13] MEDS: SODIUM CHL 0.45% + KCL 20MEQ/L 1,000 ML IV SCH ×3 (09:35→17:36)
[2019-04-13] MEDS ORDERED: SODIUM CHLORIDE 0.9% 500 ML IV ONE ×2 (10:15→11:15)
[2019-04-13] MEDS: VASOPRESSIN 10 UNIT in SODIUM CHLORIDE 0.9% 99.5 ML IV PRN ×4 (10:22→22:51)
[2019-04-13] MEDS: FENTANYL CITRATE/PF 500 MCG in SODIUM CHLORIDE 0.9% 40 ML IV PRN ×2 (10:36→20:48)
[2019-04-13] MEDS: FAMOTIDINE 20MG/2ML VIAL IV SCH (10:41)
[2019-04-13] MEDS: LEVETIRACETAM 500MG TABLET GT SCH ×2 (10:42→20:50)
[2019-04-13] MEDS: ACETAMINOPHEN 650MG/20.3ML UDC GT PRN (11:02)
[2019-04-13] MEDS: VANCOMYCIN 1 G PREMIX 200 ML IV SCH ×2 (11:25→20:23)
[2019-04-13] MEDS ORDERED: ACETAMINOPHEN 650MG/20.3ML UDC PO PRN (11:30)
[2019-04-13] MEDS: PHENYLEPHRINE 80 MG in DEXT 5% WATER 492 ML IV PRN ×2 (12:43→20:20)
[2019-04-13 13:38] LABS: BG BASE EXCESS -6.5 mmol/L (-2.0-2.0); BG CARBOXYHEMOGLOBIN 0.3 % (0.5-1.5); BG DEOXYHEMOGLOBIN 1.6 % (0.0-5.0); BG FRACTION INSPIRED OXYGEN 100; BG HCO3 ACT 17.7 mmol/L (22.0-26.0); BG METHEMOGLOBIN 0.3 % (0.0-1.5); BG OXYGEN SATURATION 98.4 % (92.0-98.5); BG OXYHEMOGLOBIN 97.8 % (94.0-97.0); BG PCO2 31.9 mmHg (35.0-45.0); BG PH 7.363 (7.350-7.450); BG PO2 123.3 mmHg (75.0-100.0); BG SAMPLE SITE RIGHT FEMORAL; BG TIDAL VOLUME(mL) 500 mL; BG TOTAL HEMOGLOBIN 13.9 g/dL (12.0-18.0); BG VENT MODE VENT - A/C; BG VENT RATE 18 set
[2019-04-13 14:33] LABS: C REACTIVE PROTEIN QUANT > 190.0 mg/L (0.0-3.0)
[2019-04-13] MEDS ORDERED: AMIKACIN SULFATE 500 MG in SODIUM CHLORIDE 0.9% 100 ML IV NR (15:00)
[2019-04-13] MEDS: MEROPENEM 1,000 MG in SODIUM CHLORIDE 0.9% 100 ML IV SCH ×2 (16:55→23:00)
[2019-04-14] VITALS (99 sets, daily range): BP systolic 70–145; BP diastolic 34–105
[2019-04-14] MEDS: IPRATROPIUM/ALBUTEROL 0.5-3(2.5)MG/3ML NEB HHN SCH ×6 (00:23→20:38)
[2019-04-14] MEDS: SODIUM CHL 0.45% + KCL 20MEQ/L 1,000 ML IV SCH (00:47)
[2019-04-14] MEDS: VASOPRESSIN 10 UNIT in SODIUM CHLORIDE 0.9% 99.5 ML IV PRN ×2 (03:30→08:19)
[2019-04-14] MEDS: PHENYLEPHRINE 80 MG in DEXT 5% WATER 492 ML IV PRN ×3 (03:57→19:07)
[2019-04-14 05:42] LABS: HEMATOCRIT. 36.4 % (42.0-52.0); HEMOGLOBIN. 12.9 g/dL (14.0-18.0); MEAN CORPUSCULAR HEMOGLOBIN 32.8 pg (28.0-32.0); MEAN CORPUSCULAR VOLUME 92.5 fL (80.0-94.0); MEAN PLATELET VOLUME 8.6 fl (7.4-10.4); PLATELET 240 x1000/uL (130-400); RED BLOOD CELL COUNT 3.94 mill/uL (4.7-6.1); RED CELL DISTRIBUTION WIDTH 13.1 % (11.6-14.6)
[2019-04-14 05:49] LABS: CHLORIDE 96 mEq/L (98-107)
[2019-04-14] MEDS: FENTANYL CITRATE/PF 500 MCG in SODIUM CHLORIDE 0.9% 40 ML IV PRN ×2 (05:54→16:53)
[2019-04-14 06:54] LABS: PLATELET ESTIMATE NORMAL
[2019-04-14 08:43] LABS: BG BASE EXCESS -3.1 mmol/L (-2.0-2.0); BG CARBOXYHEMOGLOBIN 0.3 % (0.5-1.5); BG DEOXYHEMOGLOBIN 0.7 % (0.0-5.0); BG HCO3 ACT 20.4 mmol/L (22.0-26.0); BG METHEMOGLOBIN 0.2 % (0.0-1.5); BG OXYGEN SATURATION 99.3 % (92.0-98.5); BG OXYHEMOGLOBIN 98.8 % (94.0-97.0); BG PCO2 31.7 mmHg (35.0-45.0); BG PH 7.426 (7.350-7.450); BG PO2 346.7 mmHg (75.0-100.0); BG SAMPLE SITE RIGHT RADIAL; BG TIDAL VOLUME(mL) 500 mL; BG TOTAL HEMOGLOBIN 12.2 g/dL (12.0-18.0); BG VENT MODE VENT - A/C; BG VENT RATE 18 set
[2019-04-14] MEDS: FAMOTIDINE 20MG/2ML VIAL IV SCH (08:57)
[2019-04-14] MEDS: LEVETIRACETAM 500MG TABLET GT SCH ×2 (08:57→21:01)
[2019-04-14] MEDS: ENOXAPARIN 40MG/0.4ML SYR SUBCUT SCH (08:57)
[2019-04-14] MEDS: VANCOMYCIN 1 G PREMIX 200 ML IV SCH (08:57)
[2019-04-14] MEDS: MEROPENEM 1,000 MG in SODIUM CHLORIDE 0.9% 100 ML IV SCH ×3 (08:57→23:50)
[2019-04-14] MEDS: MIDODRINE HCL 5MG TABLET GT SCH ×3 (08:59→16:51)
[2019-04-14] MEDS: SODIUM CHL 0.9% + KCL 20MEQ/L 1,000 ML IV SCH ×2 (09:52→17:24)
[2019-04-14] MEDS: ACETYLCYSTEINE 100MG/ML 10% VIAL 4ML INH SCH ×2 (12:46→20:39)
[2019-04-14] MEDS: NOREPINEPHRINE 32 MG in DEXT 5% WATER 468 ML IV PRN (15:21)
[2019-04-14] MEDS: VANCOMYCIN 750 MG PREMIX 150 ML IV SCH (17:24)
[2019-04-15] VITALS (99 sets, daily range): BP systolic 49–141; BP diastolic 27–92
[2019-04-15] MEDS: IPRATROPIUM/ALBUTEROL 0.5-3(2.5)MG/3ML NEB HHN SCH ×6 (00:32→20:27)
[2019-04-15] MEDS: SODIUM CHL 0.9% + KCL 20MEQ/L 1,000 ML IV SCH (02:11)
[2019-04-15] MEDS: VANCOMYCIN 750 MG PREMIX 150 ML IV SCH ×3 (02:12→18:04)
[2019-04-15] MEDS: PHENYLEPHRINE 80 MG in DEXT 5% WATER 492 ML IV PRN ×3 (03:37→22:14)
[2019-04-15] MEDS: FENTANYL CITRATE/PF 500 MCG in SODIUM CHLORIDE 0.9% 40 ML IV PRN ×2 (04:08→15:54)
[2019-04-15 06:06] LABS: CHLORIDE 106 mEq/L (98-107); HEMATOCRIT. 34.5 % (42.0-52.0); HEMOGLOBIN. 12.1 g/dL (14.0-18.0); MEAN CORPUSCULAR HEMOGLOBIN 32.6 pg (28.0-32.0); MEAN CORPUSCULAR VOLUME 92.8 fL (80.0-94.0); MEAN PLATELET VOLUME 9.2 fl (7.4-10.4); PLATELET 87 x1000/uL (130-400); RED BLOOD CELL COUNT 3.72 mill/uL (4.7-6.1); RED CELL DISTRIBUTION WIDTH 13.1 % (11.6-14.6)
[2019-04-15 07:27] LABS: PLATELET ESTIMATE DECREASED
[2019-04-15 08:36] LABS: BG BASE EXCESS 4.2 mmol/L (-2.0-2.0); BG CARBOXYHEMOGLOBIN 0.1 % (0.5-1.5); BG DEOXYHEMOGLOBIN 3.3 % (0.0-5.0); BG FRACTION INSPIRED OXYGEN 35; BG HCO3 ACT 28.5 mmol/L (22.0-26.0); BG METHEMOGLOBIN 0.2 % (0.0-1.5); BG OXYGEN SATURATION 96.7 % (92.0-98.5); BG OXYHEMOGLOBIN 96.4 % (94.0-97.0); BG PCO2 41.3 mmHg (35.0-45.0); BG PH 7.456 (7.350-7.450); BG SAMPLE SITE RIGHT RADIAL; BG TIDAL VOLUME(mL) 500 mL; BG TOTAL HEMOGLOBIN 12.6 g/dL (12.0-18.0); BG VENT MODE VENT - A/C; BG VENT RATE 18 set
[2019-04-15] MEDS: ENOXAPARIN 40MG/0.4ML SYR SUBCUT SCH (08:46)
[2019-04-15] MEDS: MEROPENEM 1,000 MG in SODIUM CHLORIDE 0.9% 100 ML IV SCH ×2 (08:46→15:54)
[2019-04-15] MEDS: FAMOTIDINE 20MG/2ML VIAL IV SCH (08:47)
[2019-04-15] MEDS: MIDODRINE HCL 5MG TABLET GT SCH ×3 (08:47→17:26)
[2019-04-15] MEDS: ACETYLCYSTEINE 100MG/ML 10% VIAL 4ML INH SCH ×2 (08:50→16:53)
[2019-04-15] MEDS: DEXT 5%/0.45% NACL KCL 20MEQ/L 1,000 ML IV SCH ×2 (09:53→18:04)
[2019-04-15] MEDS: LEVETIRACETAM 500MG TABLET GT SCH ×2 (09:54→21:20)
[2019-04-15] MEDS: SULFACETAMIDE SODIUM 10% OPHTH DROPS 15ML EACHEYE SCH ×4 (09:55→21:20)
[2019-04-15] MEDS: NOREPINEPHRINE 32 MG in DEXT 5% WATER 468 ML IV PRN (11:32)
[2019-04-15] MEDS ORDERED: DESMOPRESSIN ACETATE 4MCG/ML AMP IV ONE (14:00)
[2019-04-15] MEDS ORDERED: SODIUM CHLORIDE 0.9% 500 ML IV NR (14:34)
[2019-04-15 15:09] LABS: CHLORIDE 105 mEq/L (98-107)
[2019-04-15] MEDS ORDERED: DESMOPRESSIN ACETATE IV NR (16:30)
[2019-04-15] MEDS ORDERED: SODIUM CHLORIDE 0.9% IV NR (16:30)
[2019-04-15] MEDS: VASOPRESSIN 10 UNIT in SODIUM CHLORIDE 0.9% 99.5 ML IV PRN ×2 (17:00→21:20)
[2019-04-15] MEDS ORDERED: POTASSIUM CHLORIDE INJ 60 MEQ in DEXT 5% WATER 500 ML IV NR (21:00)
[2019-04-16] VITALS (99 sets, daily range): BP systolic 61–142; BP diastolic 32–95
[2019-04-16] MEDS: ACETYLCYSTEINE 100MG/ML 10% VIAL 4ML INH SCH ×3 (00:18→16:35)
[2019-04-16] MEDS: IPRATROPIUM/ALBUTEROL 0.5-3(2.5)MG/3ML NEB HHN SCH ×6 (00:18→20:40)
[2019-04-16] MEDS: MEROPENEM 1,000 MG in SODIUM CHLORIDE 0.9% 100 ML IV SCH ×3 (00:48→17:26)
[2019-04-16] MEDS: DEXT 5%/0.45% NACL KCL 20MEQ/L 1,000 ML IV SCH ×2 (00:48→09:35)
[2019-04-16] MEDS: FENTANYL CITRATE/PF 500 MCG in SODIUM CHLORIDE 0.9% 40 ML IV PRN ×3 (00:51→20:56)
[2019-04-16] MEDS: VANCOMYCIN 750 MG PREMIX 150 ML IV SCH ×3 (02:00→17:36)
[2019-04-16] MEDS: PHENYLEPHRINE 80 MG in DEXT 5% WATER 492 ML IV PRN ×3 (05:30→21:20)
[2019-04-16 05:50] LABS: CHLORIDE 91 mEq/L (98-107)
[2019-04-16 06:20] LABS: BASOPHILS % 0.5 % (0.0-2.0); EOSINOPHILS % 1.1 % (0.0-5.0); HEMATOCRIT. 31.5 % (42.0-52.0); HEMOGLOBIN. 11.4 g/dL (14.0-18.0); LYMPHOCYTES % 7.8 % (20.0-50.0); MEAN CORPUSCULAR HEMOGLOBIN 32.8 pg (28.0-32.0); MEAN CORPUSCULAR VOLUME 90.5 fL (80.0-94.0); MEAN PLATELET VOLUME 8.3 fl (7.4-10.4); MONOCYTES % 13.3 % (2.0-8.0); NEUTROPHILS % 77.3 % (40.0-76.0); PLATELET 158 x1000/uL (130-400); RED BLOOD CELL COUNT 3.48 mill/uL (4.7-6.1); RED CELL DISTRIBUTION WIDTH 12.9 % (11.6-14.6)
[2019-04-16 06:25] LABS: PHOSPHORUS 0.5 mg/dL (2.5-4.9)
[2019-04-16 07:38] LABS: BG CARBOXYHEMOGLOBIN 0.3 % (0.5-1.5); BG DEOXYHEMOGLOBIN 3.6 % (0.0-5.0); BG HCO3 ACT 33.1 mmol/L (22.0-26.0); BG METHEMOGLOBIN 0.2 % (0.0-1.5); BG OXYGEN SATURATION 96.4 % (92.0-98.5); BG OXYHEMOGLOBIN 95.9 % (94.0-97.0); BG PCO2 38.9 mmHg (35.0-45.0); BG PH 7.548 (7.350-7.450); BG PO2 72.1 mmHg (75.0-100.0); BG SAMPLE SITE RIGHT RADIAL; BG TIDAL VOLUME(mL) 500 mL; BG TOTAL HEMOGLOBIN 11.9 g/dL (12.0-18.0); BG VENT MODE VENT - A/C; BG VENT RATE 14 set
[2019-04-16] MEDS: FAMOTIDINE 20MG/2ML VIAL IV SCH (08:55)
[2019-04-16] MEDS: POTASSIUM-SODIUM PHOSPHATE POWDER PACKET GT SCH ×2 (08:55→17:36)
[2019-04-16] MEDS: LEVETIRACETAM 500MG TABLET GT SCH ×2 (08:56→21:27)
[2019-04-16] MEDS: MIDODRINE HCL 5MG TABLET GT SCH ×3 (08:56→17:36)
[2019-04-16] MEDS: SULFACETAMIDE SODIUM 10% OPHTH DROPS 15ML EACHEYE SCH ×4 (08:59→21:28)
[2019-04-16] MEDS ORDERED: MAGNESIUM 4 G PREMIX 100 ML IV SCH (09:00)
[2019-04-16] MEDS: POTASSIUM CHLORIDE INJ 40 MEQ in SODIUM CHLORIDE 0.9% 1,000 ML IV SCH ×2 (10:18→20:05)
[2019-04-16] MEDS: POTASSIUM PHOS,M-BASIC-D-BASIC 30 MMOL in DEXT 5% WATER 500 ML IV SCH ×2 (10:19→17:36)
[2019-04-16 16:24] LABS: CHLORIDE 93 mEq/L (98-107)
[2019-04-16] MEDS: LORAZEPAM 2MG/ML CPJ IV PRN (20:44)
[2019-04-17] VITALS (95 sets, daily range): BP systolic 79–147; BP diastolic 56–98
[2019-04-17] MEDS: ACETYLCYSTEINE 100MG/ML 10% VIAL 4ML INH SCH ×3 (00:25→16:21)
[2019-04-17] MEDS: IPRATROPIUM/ALBUTEROL 0.5-3(2.5)MG/3ML NEB HHN SCH ×6 (00:26→21:02)
[2019-04-17] MEDS: MEROPENEM 1,000 MG in SODIUM CHLORIDE 0.9% 100 ML IV SCH ×2 (00:58→08:43)
[2019-04-17] MEDS: NOREPINEPHRINE 32 MG in DEXT 5% WATER 468 ML IV PRN (01:00)
[2019-04-17] MEDS: VANCOMYCIN 750 MG PREMIX 150 ML IV SCH ×2 (02:00→09:03)
[2019-04-17] MEDS: FENTANYL CITRATE/PF 500 MCG in SODIUM CHLORIDE 0.9% 40 ML IV PRN ×3 (05:26→22:52)
[2019-04-17] MEDS: PHENYLEPHRINE 80 MG in DEXT 5% WATER 492 ML IV PRN ×2 (05:43→14:18)
[2019-04-17 06:06] LABS: CHLORIDE 99 mEq/L (98-107)
[2019-04-17] MEDS: POTASSIUM CHLORIDE INJ 40 MEQ in SODIUM CHLORIDE 0.9% 1,000 ML IV SCH ×2 (06:09→15:55)
[2019-04-17 06:12] LABS: PHOSPHORUS 2.3 mg/dL (2.5-4.9)
[2019-04-17 06:22] LABS: BASOPHILS % 0.3 % (0.0-2.0); EOSINOPHILS % 0.7 % (0.0-5.0); HEMOGLOBIN. 12.2 g/dL (14.0-18.0); LYMPHOCYTES % 10.2 % (20.0-50.0); MEAN CORPUSCULAR HEMOGLOBIN 32.8 pg (28.0-32.0); MEAN CORPUSCULAR VOLUME 91.7 fL (80.0-94.0); MEAN PLATELET VOLUME 8.4 fl (7.4-10.4); MONOCYTES % 14.7 % (2.0-8.0); NEUTROPHILS % 74.1 % (40.0-76.0); PLATELET 157 x1000/uL (130-400); RED BLOOD CELL COUNT 3.71 mill/uL (4.7-6.1)
[2019-04-17] MEDS: MIDODRINE HCL 5MG TABLET GT SCH ×3 (08:43→16:01)
[2019-04-17] MEDS: POTASSIUM-SODIUM PHOSPHATE POWDER PACKET GT SCH ×2 (08:43→16:00)
[2019-04-17] MEDS: LEVETIRACETAM 500MG TABLET GT SCH ×2 (08:43→21:34)
[2019-04-17] MEDS: FAMOTIDINE 20MG/2ML VIAL IV SCH (08:43)
[2019-04-17] MEDS: SULFACETAMIDE SODIUM 10% OPHTH DROPS 15ML EACHEYE SCH ×4 (08:44→21:09)
[2019-04-17 09:49] LABS: BG BASE EXCESS 5.9 mmol/L (-2.0-2.0); BG CARBOXYHEMOGLOBIN 0.3 % (0.5-1.5); BG DEOXYHEMOGLOBIN 7.2 % (0.0-5.0); BG HCO3 ACT 29.1 mmol/L (22.0-26.0); BG METHEMOGLOBIN 0.2 % (0.0-1.5); BG OXYGEN SATURATION 92.8 % (92.0-98.5); BG OXYHEMOGLOBIN 92.3 % (94.0-97.0); BG PCO2 36.9 mmHg (35.0-45.0); BG PH 7.514 (7.350-7.450); BG PO2 60.4 mmHg (75.0-100.0); BG SAMPLE SITE RIGHT RADIAL; BG TIDAL VOLUME(mL) 500 mL; BG TOTAL HEMOGLOBIN 12.3 g/dL (12.0-18.0); BG VENT MODE VENT - A/C; BG VENT RATE 14 set
[2019-04-17] MEDS ORDERED: POTASSIUM PHOS,M-BASIC-D-BASIC 30 MMOL in DEXT 5% WATER 500 ML IV NR (10:00)
[2019-04-17] MEDS ORDERED: FLUDROCORTISONE ACETATE 0.1MG TABLET GT SCH (10:00)
[2019-04-17] MEDS: CEFEPIME 1,000 MG in DEXTROSE 5% WATER 50 ML IV SCH (16:45)
[2019-04-17] MEDS: METRONIDAZOLE 500MG TABLET PO SCH (21:09)
[2019-04-18] VITALS (94 sets, daily range): BP systolic 81–134; BP diastolic 55–90
[2019-04-18] MEDS: ACETYLCYSTEINE 100MG/ML 10% VIAL 4ML INH SCH ×3 (00:32→16:40)
[2019-04-18] MEDS: IPRATROPIUM/ALBUTEROL 0.5-3(2.5)MG/3ML NEB HHN SCH ×6 (00:33→21:10)
[2019-04-18] MEDS: PHENYLEPHRINE 80 MG in DEXT 5% WATER 492 ML IV PRN (02:17)
[2019-04-18] MEDS: POTASSIUM CHLORIDE INJ 40 MEQ in SODIUM CHLORIDE 0.9% 1,000 ML IV SCH (02:52)
[2019-04-18] MEDS: CEFEPIME 1,000 MG in DEXTROSE 5% WATER 50 ML IV SCH ×2 (05:16→17:00)
[2019-04-18 05:44] LABS: BASOPHILS % 0.4 % (0.0-2.0); HEMATOCRIT. 29.7 % (42.0-52.0); HEMOGLOBIN. 10.7 g/dL (14.0-18.0); MEAN CORPUSCULAR HEMOGLOBIN 33.1 pg (28.0-32.0); MEAN CORPUSCULAR VOLUME 92.1 fL (80.0-94.0); MEAN PLATELET VOLUME 8.4 fl (7.4-10.4); MONOCYTES % 12.6 % (2.0-8.0); PLATELET 158 x1000/uL (130-400); RED BLOOD CELL COUNT 3.23 mill/uL (4.7-6.1); RED CELL DISTRIBUTION WIDTH 13.2 % (11.6-14.6)
[2019-04-18 05:48] LABS: CHLORIDE 103 mEq/L (98-107)
[2019-04-18] MEDS ORDERED: FENTANYL CITRATE/PF 1,000 MCG in SODIUM CHLORIDE 0.9% 80 ML IV PRN (08:15)
[2019-04-18] MEDS: POTASSIUM-SODIUM PHOSPHATE POWDER PACKET GT SCH ×2 (08:47→17:00)
[2019-04-18] MEDS: MIDODRINE HCL 5MG TABLET GT SCH ×3 (08:47→17:00)
[2019-04-18] MEDS: FAMOTIDINE 20MG/2ML VIAL IV SCH (08:47)
[2019-04-18] MEDS: FLUDROCORTISONE ACETATE 0.1MG TABLET GT SCH ×2 (08:47→18:46)
[2019-04-18] MEDS: LEVETIRACETAM 500MG TABLET GT SCH ×2 (08:47→21:46)
[2019-04-18] MEDS: SULFACETAMIDE SODIUM 10% OPHTH DROPS 15ML EACHEYE SCH ×4 (08:48→21:46)
[2019-04-18] MEDS: METRONIDAZOLE 500MG TABLET PO SCH ×2 (08:48→21:46)
[2019-04-18 08:52] LABS: BG BASE EXCESS 3.2 mmol/L (-2.0-2.0); BG CARBOXYHEMOGLOBIN 0.2 % (0.5-1.5); BG DEOXYHEMOGLOBIN 2.3 % (0.0-5.0); BG FRACTION INSPIRED OXYGEN 35; BG HCO3 ACT 26.4 mmol/L (22.0-26.0); BG METHEMOGLOBIN 0.4 % (0.0-1.5); BG OXYGEN SATURATION 97.7 % (92.0-98.5); BG OXYHEMOGLOBIN 97.1 % (94.0-97.0); BG PCO2 36.2 mmHg (35.0-45.0); BG PRESSURE SUPPORT 10; BG SAMPLE SITE RIGHT RADIAL; BG TIDAL VOLUME(mL) 500 mL; BG TOTAL HEMOGLOBIN 18.1 g/dL (12.0-18.0); BG VENT MODE VENT - SIMV; BG VENT RATE 14 set
[2019-04-18] MEDS: FENTANYL CITRATE/PF 1,000 MCG in SODIUM CHLORIDE 0.9% 80 ML IV PRN (09:30)
[2019-04-18] MEDS: NOREPINEPHRINE 32 MG in DEXT 5% WATER 468 ML IV PRN (09:30)
[2019-04-19] VITALS (94 sets, daily range): BP systolic 88–133; BP diastolic 37–87
[2019-04-19] MEDS: IPRATROPIUM/ALBUTEROL 0.5-3(2.5)MG/3ML NEB HHN SCH ×6 (00:50→21:08)
[2019-04-19] MEDS: ACETYLCYSTEINE 100MG/ML 10% VIAL 4ML INH SCH ×3 (00:50→17:04)
[2019-04-19] MEDS: NOREPINEPHRINE 32 MG in DEXT 5% WATER 468 ML IV PRN ×2 (01:24→23:24)
[2019-04-19] MEDS: FENTANYL CITRATE/PF 1,000 MCG in SODIUM CHLORIDE 0.9% 80 ML IV PRN (04:06)
[2019-04-19] MEDS: CEFEPIME 1,000 MG in DEXTROSE 5% WATER 50 ML IV SCH ×2 (05:09→17:11)
[2019-04-19 05:54] LABS: CHLORIDE 102 mEq/L (98-107)
[2019-04-19 05:59] LABS: PHOSPHORUS 2.2 mg/dL (2.5-4.9)
[2019-04-19 06:08] LABS: BASOPHILS % 0.2 % (0.0-2.0); EOSINOPHILS % 1.9 % (0.0-5.0); HEMATOCRIT. 30.6 % (42.0-52.0); HEMOGLOBIN. 10.8 g/dL (14.0-18.0); LYMPHOCYTES % 10.2 % (20.0-50.0); MEAN CORPUSCULAR HEMOGLOBIN 32.7 pg (28.0-32.0); MEAN CORPUSCULAR VOLUME 92.5 fL (80.0-94.0); MEAN PLATELET VOLUME 8.6 fl (7.4-10.4); MONOCYTES % 8.4 % (2.0-8.0); NEUTROPHILS % 79.3 % (40.0-76.0); PLATELET 190 x1000/uL (130-400); RED BLOOD CELL COUNT 3.31 mill/uL (4.7-6.1); RED CELL DISTRIBUTION WIDTH 12.9 % (11.6-14.6)
[2019-04-19] MEDS: FLUDROCORTISONE ACETATE 0.1MG TABLET GT SCH ×2 (06:59→09:44)
[2019-04-19 07:45] LABS: BG BASE EXCESS 4.2 mmol/L (-2.0-2.0); BG CARBOXYHEMOGLOBIN 0.3 % (0.5-1.5); BG FRACTION INSPIRED OXYGEN 35; BG HCO3 ACT 26.2 mmol/L (22.0-26.0); BG METHEMOGLOBIN 0.3 % (0.0-1.5); BG OXYHEMOGLOBIN 97.4 % (94.0-97.0); BG PCO2 30.9 mmHg (35.0-45.0); BG PH 7.547 (7.350-7.450); BG PO2 110.5 mmHg (75.0-100.0); BG PRESSURE SUPPORT 12; BG SAMPLE SITE RIGHT RADIAL; BG TIDAL VOLUME(mL) 500 mL; BG TOTAL HEMOGLOBIN 11.5 g/dL (12.0-18.0); BG VENT MODE VENT - SIMV; BG VENT RATE 8 set
[2019-04-19] MEDS: FAMOTIDINE 20MG/2ML VIAL IV SCH (09:44)
[2019-04-19] MEDS: LEVETIRACETAM 500MG TABLET GT SCH ×2 (09:44→21:26)
[2019-04-19] MEDS: POTASSIUM-SODIUM PHOSPHATE POWDER PACKET GT SCH ×2 (09:44→17:07)
[2019-04-19] MEDS: SULFACETAMIDE SODIUM 10% OPHTH DROPS 15ML EACHEYE SCH ×4 (09:45→21:25)
[2019-04-19] MEDS: METRONIDAZOLE 500MG TABLET PO SCH ×2 (09:45→21:25)
[2019-04-19] MEDS: MIDODRINE HCL 5MG TABLET GT SCH ×3 (09:45→17:08)
[2019-04-19] MEDS: ACETAMINOPHEN 650MG/20.3ML UDC GT PRN (09:46)
[2019-04-19] MEDS ORDERED: POTASSIUM PHOS,M-BASIC-D-BASIC 15 MMOL in DEXT 5% WATER 245 ML IV NR (10:00)
[2019-04-19] MEDS: LORAZEPAM 2MG/ML CPJ IV PRN (13:49)
[2019-04-19] MEDS ORDERED: DOCU-150 MT (17:59)
[2019-04-19] MEDS ORDERED: SENN-170 MT (17:59)
[2019-04-19] MEDS ORDERED: KEPP500 MT (17:59)
[2019-04-19] MEDS ORDERED: METO25TA6 MT (17:59)
[2019-04-19] MEDS ORDERED: FAMO20TA8 PO (17:59)
[2019-04-20] VITALS (91 sets, daily range): BP systolic 91–143; BP diastolic 26–91
[2019-04-20] MEDS: LORAZEPAM 2MG/ML CPJ IV PRN (01:37)
[2019-04-20] MEDS: IPRATROPIUM/ALBUTEROL 0.5-3(2.5)MG/3ML NEB HHN SCH ×6 (01:38→20:34)
[2019-04-20] MEDS: CEFEPIME 1,000 MG in DEXTROSE 5% WATER 50 ML IV SCH ×2 (05:22→18:08)
[2019-04-20 06:17] LABS: BASOPHILS % 0.3 % (0.0-2.0); EOSINOPHILS % 0.3 % (0.0-5.0); HEMATOCRIT. 31.4 % (42.0-52.0); HEMOGLOBIN. 10.9 g/dL (14.0-18.0); LYMPHOCYTES % 8.6 % (20.0-50.0); MEAN CORPUSCULAR HEMOGLOBIN 32.7 pg (28.0-32.0); MEAN CORPUSCULAR VOLUME 94.1 fL (80.0-94.0); MEAN PLATELET VOLUME 8.6 fl (7.4-10.4); MONOCYTES % 8.8 % (2.0-8.0); PLATELET 226 x1000/uL (130-400); RED BLOOD CELL COUNT 3.33 mill/uL (4.7-6.1)
[2019-04-20] MEDS: FLUDROCORTISONE ACETATE 0.1MG TABLET GT SCH ×2 (06:23→18:07)
[2019-04-20 06:29] LABS: CHLORIDE 102 mEq/L (98-107)
[2019-04-20 06:33] LABS: PHOSPHORUS 2.6 mg/dL (2.5-4.9)
[2019-04-20] MEDS: FAMOTIDINE 20MG/2ML VIAL IV SCH (08:13)
[2019-04-20] MEDS: LEVETIRACETAM 500MG TABLET GT SCH ×2 (08:13→22:01)
[2019-04-20] MEDS: METRONIDAZOLE 500MG TABLET PO SCH ×2 (08:14→22:01)
[2019-04-20] MEDS: SULFACETAMIDE SODIUM 10% OPHTH DROPS 15ML EACHEYE SCH ×4 (08:14→22:01)
[2019-04-20] MEDS: POTASSIUM-SODIUM PHOSPHATE POWDER PACKET GT SCH ×2 (08:14→18:07)
[2019-04-20] MEDS: MIDODRINE HCL 5MG TABLET GT SCH ×3 (08:14→18:07)
[2019-04-20] MEDS: DOCUSATE SODIUM SUGAR FREE 100MG/10ML UDC NG SCH ×2 (09:00→17:00)
[2019-04-20] MEDS ORDERED: POTASSIUM PHOS,M-BASIC-D-BASIC 15 MMOL in DEXT 5% WATER 245 ML IV SCH (10:00)
[2019-04-20] MEDS: ONDANSETRON HCL 4MG/2ML INJ IV PRN (10:28)
[2019-04-20] MEDS: SODIUM CHL 0.9% + KCL 20MEQ/L 1,000 ML IV SCH (10:28)
[2019-04-20 11:22] LABS: BG BASE EXCESS 3.4 mmol/L (-2.0-2.0); BG CARBOXYHEMOGLOBIN 0.3 % (0.5-1.5); BG DEOXYHEMOGLOBIN 2.3 % (0.0-5.0); BG FRACTION INSPIRED OXYGEN 35; BG HCO3 ACT 24.6 mmol/L (22.0-26.0); BG METHEMOGLOBIN 0.2 % (0.0-1.5); BG OXYGEN SATURATION 97.7 % (92.0-98.5); BG OXYHEMOGLOBIN 97.2 % (94.0-97.0); BG PCO2 27.7 mmHg (35.0-45.0); BG PH 7.566 (7.350-7.450); BG PO2 96.6 mmHg (75.0-100.0); BG PRESSURE SUPPORT 8; BG SAMPLE SITE RIGHT RADIAL; BG TOTAL HEMOGLOBIN 12.9 g/dL (12.0-18.0); BG VENT MODE VENT - CPAP
[2019-04-20 13:28] LABS: BG BASE EXCESS 2.5 mmol/L (-2.0-2.0); BG CARBOXYHEMOGLOBIN 0.1 % (0.5-1.5); BG FRACTION INSPIRED OXYGEN 35; BG HCO3 ACT 24.8 mmol/L (22.0-26.0); BG METHEMOGLOBIN 0.2 % (0.0-1.5); BG OXYHEMOGLOBIN 96.7 % (94.0-97.0); BG PCO2 30.5 mmHg (35.0-45.0); BG PH 7.528 (7.350-7.450); BG PO2 93.7 mmHg (75.0-100.0); BG SAMPLE SITE RIGHT RADIAL; BG TOTAL HEMOGLOBIN 10.3 g/dL (12.0-18.0); BG VENT MODE T-TUBE
[2019-04-20 17:20] LABS: BG BASE EXCESS 1.1 mmol/L (-2.0-2.0); BG CARBOXYHEMOGLOBIN 0.3 % (0.5-1.5); BG DEOXYHEMOGLOBIN 4.2 % (0.0-5.0); BG FRACTION INSPIRED OXYGEN 35; BG HCO3 ACT 23.8 mmol/L (22.0-26.0); BG OXYGEN SATURATION 95.8 % (92.0-98.5); BG OXYHEMOGLOBIN 95.5 % (94.0-97.0); BG PCO2 31.2 mmHg (35.0-45.0); BG PO2 80.1 mmHg (75.0-100.0); BG SAMPLE SITE RIGHT RADIAL; BG TOTAL HEMOGLOBIN 10.6 g/dL (12.0-18.0); BG VENT MODE MASK - AEROSOL
[2019-04-20] MEDS: NOREPINEPHRINE 32 MG in DEXT 5% WATER 468 ML IV PRN (22:36)
[2019-04-21] VITALS (92 sets, daily range): BP systolic 66–123; BP diastolic 32–93
[2019-04-21] MEDS: IPRATROPIUM/ALBUTEROL 0.5-3(2.5)MG/3ML NEB HHN SCH ×7 (00:44→23:55)
[2019-04-21] MEDS: ONDANSETRON HCL 4MG/2ML INJ IV PRN (03:54)
[2019-04-21] MEDS: CEFEPIME 1,000 MG in DEXTROSE 5% WATER 50 ML IV SCH ×2 (05:06→17:39)
[2019-04-21 05:40] LABS: BASOPHILS % 0.4 % (0.0-2.0); CHLORIDE 105 mEq/L (98-107); EOSINOPHILS % 0.3 % (0.0-5.0); HEMATOCRIT. 28.6 % (42.0-52.0); HEMOGLOBIN. 9.9 g/dL (14.0-18.0); LYMPHOCYTES % 7.4 % (20.0-50.0); MEAN CORPUSCULAR HEMOGLOBIN 32.6 pg (28.0-32.0); MEAN CORPUSCULAR VOLUME 94.1 fL (80.0-94.0); MEAN PLATELET VOLUME 8.2 fl (7.4-10.4); MONOCYTES % 6.7 % (2.0-8.0); NEUTROPHILS % 85.2 % (40.0-76.0); PLATELET 298 x1000/uL (130-400); RED BLOOD CELL COUNT 3.04 mill/uL (4.7-6.1); RED CELL DISTRIBUTION WIDTH 13.1 % (11.6-14.6)
[2019-04-21 05:50] LABS: PHOSPHORUS 2.8 mg/dL (2.5-4.9)
[2019-04-21] MEDS: SODIUM CHL 0.9% + KCL 20MEQ/L 1,000 ML IV SCH (06:10)
[2019-04-21] MEDS: FLUDROCORTISONE ACETATE 0.1MG TABLET GT SCH ×2 (06:16→17:39)
[2019-04-21 08:13] LABS: BG CARBOXYHEMOGLOBIN 0.4 % (0.5-1.5); BG DEOXYHEMOGLOBIN 5.5 % (0.0-5.0); BG FRACTION INSPIRED OXYGEN 32; BG HCO3 ACT 25.2 mmol/L (22.0-26.0); BG METHEMOGLOBIN 0.3 % (0.0-1.5); BG OXYGEN SATURATION 94.5 % (92.0-98.5); BG OXYHEMOGLOBIN 93.8 % (94.0-97.0); BG PCO2 31.3 mmHg (35.0-45.0); BG PH 7.523 (7.350-7.450); BG PO2 69.1 mmHg (75.0-100.0); BG SAMPLE SITE RIGHT RADIAL; BG TOTAL HEMOGLOBIN 13.2 g/dL (12.0-18.0); BG VENT MODE NASAL CANNULA
[2019-04-21] MEDS: POTASSIUM-SODIUM PHOSPHATE POWDER PACKET GT SCH ×2 (09:00→17:38)
[2019-04-21] MEDS: METRONIDAZOLE 500MG TABLET PO SCH ×2 (09:00→21:19)
[2019-04-21] MEDS: LEVETIRACETAM 500MG TABLET GT SCH ×2 (09:00→21:19)
[2019-04-21] MEDS: DOCUSATE SODIUM SUGAR FREE 100MG/10ML UDC NG SCH ×2 (09:00→17:38)
[2019-04-21] MEDS: MIDODRINE HCL 5MG TABLET GT SCH ×3 (09:01→17:38)
[2019-04-21] MEDS: SULFACETAMIDE SODIUM 10% OPHTH DROPS 15ML EACHEYE SCH ×4 (09:02→21:19)
[2019-04-21] MEDS: PANTOPRAZOLE 80 MG in SODIUM CHLORIDE 0.9% 100 ML IV SCH ×2 (10:26→21:19)
[2019-04-21] MEDS ORDERED: SORBITOL 70% SOLN 30ML PO NR (11:00)
[2019-04-21] MEDS ORDERED: NA PHOS,M-B/NA PHOS,DI-BA ENEMA 118ML PR NR (11:00)
[2019-04-21] MEDS: METOCLOPRAMIDE HCL 10MG/2ML VIAL IV SCH ×2 (11:48→17:39)
[2019-04-22] VITALS (94 sets, daily range): BP systolic 71–140; BP diastolic 34–76
[2019-04-22] MEDS: METOCLOPRAMIDE HCL 10MG/2ML VIAL IV SCH ×4 (00:19→17:27)
[2019-04-22] MEDS: SODIUM CHL 0.9% + KCL 20MEQ/L 1,000 ML IV SCH ×2 (02:01→17:27)
[2019-04-22] MEDS: IPRATROPIUM/ALBUTEROL 0.5-3(2.5)MG/3ML NEB HHN SCH ×5 (03:55→20:24)
[2019-04-22 05:15] LABS: BASOPHILS % 0.5 % (0.0-2.0); EOSINOPHILS % 0.6 % (0.0-5.0); HEMATOCRIT. 25.9 % (42.0-52.0); HEMOGLOBIN. 9.1 g/dL (14.0-18.0); LYMPHOCYTES % 7.3 % (20.0-50.0); MEAN CORPUSCULAR HEMOGLOBIN 32.9 pg (28.0-32.0); MEAN CORPUSCULAR VOLUME 93.7 fL (80.0-94.0); MONOCYTES % 7.5 % (2.0-8.0); NEUTROPHILS % 84.1 % (40.0-76.0); PLATELET 314 x1000/uL (130-400); RED BLOOD CELL COUNT 2.76 mill/uL (4.7-6.1); RED CELL DISTRIBUTION WIDTH 13.1 % (11.6-14.6)
[2019-04-22 05:26] LABS: CHLORIDE 108 mEq/L (98-107)
[2019-04-22 05:32] LABS: PHOSPHORUS 2.3 mg/dL (2.5-4.9)
[2019-04-22] MEDS: FLUDROCORTISONE ACETATE 0.1MG TABLET GT SCH ×2 (05:42→17:27)
[2019-04-22] MEDS: CEFEPIME 1,000 MG in DEXTROSE 5% WATER 50 ML IV SCH ×2 (05:42→17:27)
[2019-04-22] MEDS: DOCUSATE SODIUM SUGAR FREE 100MG/10ML UDC NG SCH ×2 (08:43→17:27)
[2019-04-22] MEDS: METRONIDAZOLE 500MG TABLET PO SCH ×2 (08:43→22:20)
[2019-04-22] MEDS: PANTOPRAZOLE 80 MG in SODIUM CHLORIDE 0.9% 100 ML IV SCH (08:43)
[2019-04-22] MEDS: MIDODRINE HCL 5MG TABLET GT SCH ×3 (08:44→17:28)
[2019-04-22] MEDS: NOREPINEPHRINE 32 MG in DEXT 5% WATER 468 ML IV PRN (08:44)
[2019-04-22] MEDS: LEVETIRACETAM 500MG TABLET GT SCH ×2 (08:44→22:20)
[2019-04-22] MEDS: POTASSIUM-SODIUM PHOSPHATE POWDER PACKET GT SCH ×2 (08:44→17:27)
[2019-04-22] MEDS: SULFACETAMIDE SODIUM 10% OPHTH DROPS 15ML EACHEYE SCH (09:13)
[2019-04-22] MEDS ORDERED: POTASSIUM CHLORIDE 20MEQ/PACKET GT ONE (10:15)
[2019-04-22 10:30] LABS: BG BASE EXCESS 2.1 mmol/L (-2.0-2.0); BG CARBOXYHEMOGLOBIN 0.3 % (0.5-1.5); BG DEOXYHEMOGLOBIN 5.8 % (0.0-5.0); BG FRACTION INSPIRED OXYGEN 28; BG HCO3 ACT 25.5 mmol/L (22.0-26.0); BG METHEMOGLOBIN 0.1 % (0.0-1.5); BG OXYGEN SATURATION 94.2 % (92.0-98.5); BG OXYHEMOGLOBIN 93.8 % (94.0-97.0); BG PCO2 34.8 mmHg (35.0-45.0); BG PH 7.482 (7.350-7.450); BG PO2 69.5 mmHg (75.0-100.0); BG SAMPLE SITE RIGHT BRACHIAL; BG TOTAL HEMOGLOBIN 10.3 g/dL (12.0-18.0); BG VENT MODE NASAL CANNULA
[2019-04-22] MEDS: MULTIVITAMINS,THER W-MINERALS TABLET GT SCH (11:17)
[2019-04-22] MEDS: FERROUS SULFATE 300MG/5ML UDC GT SCH ×2 (12:25→17:27)
[2019-04-22] MEDS: ACETYLCYSTEINE 100MG/ML 10% VIAL 4ML INH SCH (12:41)
[2019-04-22 12:55] LABS: TOTAL IRON BINDING CAPACITY 204 ug/dL (250-450)
[2019-04-22] MEDS: FAMOTIDINE 20MG TABLET GT SCH (22:20)
[2019-04-23] VITALS (99 sets, daily range): BP systolic 47–135; BP diastolic 18–85
[2019-04-23] MEDS: ACETYLCYSTEINE 100MG/ML 10% VIAL 4ML INH SCH ×3 (00:18→16:29)
[2019-04-23] MEDS: IPRATROPIUM/ALBUTEROL 0.5-3(2.5)MG/3ML NEB HHN SCH ×6 (00:19→20:22)
[2019-04-23] MEDS: METOCLOPRAMIDE HCL 10MG/2ML VIAL IV SCH ×3 (02:07→17:15)
[2019-04-23] MEDS: NOREPINEPHRINE 16 MG in DEXT 5% WATER 234 ML IV PRN ×2 (02:08→16:27)
[2019-04-23] MEDS: CEFEPIME 1,000 MG in DEXTROSE 5% WATER 50 ML IV SCH ×2 (04:33→16:31)
[2019-04-23 05:23] LABS: BASOPHILS % 0.8 % (0.0-2.0); EOSINOPHILS % 0.5 % (0.0-5.0); HEMATOCRIT. 27.5 % (42.0-52.0); HEMOGLOBIN. 9.5 g/dL (14.0-18.0); LYMPHOCYTES % 10.4 % (20.0-50.0); MEAN CORPUSCULAR HEMOGLOBIN 32.4 pg (28.0-32.0); MEAN CORPUSCULAR VOLUME 93.8 fL (80.0-94.0); NEUTROPHILS % 79.3 % (40.0-76.0); PLATELET 398 x1000/uL (130-400); RED BLOOD CELL COUNT 2.93 mill/uL (4.7-6.1)
[2019-04-23] MEDS: SODIUM CHL 0.9% + KCL 20MEQ/L 1,000 ML IV SCH ×2 (06:03→21:26)
[2019-04-23] MEDS: FLUDROCORTISONE ACETATE 0.1MG TABLET GT SCH ×2 (06:03→17:15)
[2019-04-23] MEDS: FERROUS SULFATE 300MG/5ML UDC GT SCH ×3 (06:03→16:30)
[2019-04-23 07:35] LABS: CHLORIDE 106 mEq/L (98-107)
[2019-04-23 07:52] LABS: PHOSPHORUS 1.3 mg/dL (2.5-4.9)
[2019-04-23] MEDS: POTASSIUM-SODIUM PHOSPHATE POWDER PACKET GT SCH ×2 (08:44→16:30)
[2019-04-23] MEDS: FAMOTIDINE 20MG TABLET GT SCH ×2 (08:44→21:27)
[2019-04-23] MEDS: MIDODRINE HCL 5MG TABLET GT SCH ×3 (08:44→16:30)
[2019-04-23] MEDS: METRONIDAZOLE 500MG TABLET PO SCH ×2 (08:44→21:28)
[2019-04-23] MEDS: LEVETIRACETAM 500MG TABLET GT SCH ×2 (08:44→21:26)
[2019-04-23] MEDS: DOCUSATE SODIUM SUGAR FREE 100MG/10ML UDC NG SCH ×2 (08:45→16:31)
[2019-04-23] MEDS: MULTIVITAMINS,THER W-MINERALS TABLET GT SCH (08:45)
[2019-04-23] MEDS ORDERED: POTASSIUM PHOS,M-BASIC-D-BASIC 20 MMOL in DEXT 5% WATER 243.3333 ML IV NR (10:30)
[2019-04-24] VITALS (95 sets, daily range): BP systolic 76–144; BP diastolic 18–79
[2019-04-24] MEDS: SODIUM CHL 0.9% + KCL 20MEQ/L 1,000 ML IV SCH ×2 (01:45→21:34)
[2019-04-24] MEDS: METOCLOPRAMIDE HCL 10MG/2ML VIAL IV SCH ×3 (02:00→17:22)
[2019-04-24] MEDS: CEFEPIME 1,000 MG in DEXTROSE 5% WATER 50 ML IV SCH ×2 (04:55→16:59)
[2019-04-24 05:16] LABS: BASOPHILS % 0.7 % (0.0-2.0); HEMATOCRIT. 27.8 % (42.0-52.0); HEMOGLOBIN. 9.6 g/dL (14.0-18.0); LYMPHOCYTES % 14.7 % (20.0-50.0); MEAN CORPUSCULAR HEMOGLOBIN 32.4 pg (28.0-32.0); MEAN CORPUSCULAR VOLUME 93.3 fL (80.0-94.0); MONOCYTES % 10.1 % (2.0-8.0); NEUTROPHILS % 72.5 % (40.0-76.0); PLATELET 440 x1000/uL (130-400); RED BLOOD CELL COUNT 2.98 mill/uL (4.7-6.1); RED CELL DISTRIBUTION WIDTH 13.1 % (11.6-14.6)
[2019-04-24 05:28] LABS: CHLORIDE 104 mEq/L (98-107)
[2019-04-24 05:32] LABS: PHOSPHORUS 2.3 mg/dL (2.5-4.9)
[2019-04-24] MEDS: FLUDROCORTISONE ACETATE 0.1MG TABLET GT SCH ×2 (06:07→17:22)
[2019-04-24] MEDS ORDERED: POTASSIUM CHLORIDE 20MEQ/PACKET PO SCH (06:15)
[2019-04-24] MEDS: FERROUS SULFATE 300MG/5ML UDC GT SCH ×3 (06:54→16:57)
[2019-04-24] MEDS ORDERED: SODIUM PHOS,M-BASIC-D-BASIC 20 MM in DEXT 5% WATER 243.3333 ML IV NR (08:00)
[2019-04-24] MEDS: NOREPINEPHRINE 16 MG in DEXT 5% WATER 234 ML IV PRN (08:58)
[2019-04-24] MEDS: DOCUSATE SODIUM SUGAR FREE 100MG/10ML UDC NG SCH ×2 (08:59→17:22)
[2019-04-24] MEDS: POTASSIUM-SODIUM PHOSPHATE POWDER PACKET GT SCH ×2 (08:59→16:57)
[2019-04-24] MEDS: FAMOTIDINE 20MG TABLET GT SCH ×2 (09:00→21:22)
[2019-04-24] MEDS: METRONIDAZOLE 500MG TABLET PO SCH ×2 (09:00→21:22)
[2019-04-24] MEDS: MULTIVITAMINS,THER W-MINERALS TABLET GT SCH (09:00)
[2019-04-24] MEDS: MIDODRINE HCL 5MG TABLET GT SCH ×3 (09:00→16:58)
[2019-04-24] MEDS: LEVETIRACETAM 500MG TABLET GT SCH ×2 (09:01→21:22)
[2019-04-24] MEDS: IPRATROPIUM/ALBUTEROL 0.5-3(2.5)MG/3ML NEB HHN SCH ×4 (09:09→20:52)
[2019-04-24] MEDS: ACETYLCYSTEINE 100MG/ML 10% VIAL 4ML INH SCH ×2 (09:09→16:05)
[2019-04-25] VITALS (97 sets, daily range): BP systolic 79–125; BP diastolic 31–91
[2019-04-25] MEDS: ACETYLCYSTEINE 100MG/ML 10% VIAL 4ML INH SCH ×3 (00:59→15:18)
[2019-04-25] MEDS: IPRATROPIUM/ALBUTEROL 0.5-3(2.5)MG/3ML NEB HHN SCH ×6 (01:00→20:44)
[2019-04-25] MEDS: METOCLOPRAMIDE HCL 10MG/2ML VIAL IV SCH ×3 (01:49→18:19)
[2019-04-25] MEDS: NOREPINEPHRINE 16 MG in DEXT 5% WATER 234 ML IV PRN (01:54)
[2019-04-25 05:44] LABS: CHLORIDE 103 mEq/L (98-107); EOSINOPHILS % 1.2 % (0.0-5.0); HEMATOCRIT. 26.2 % (42.0-52.0); HEMOGLOBIN. 9.1 g/dL (14.0-18.0); LYMPHOCYTES % 14.9 % (20.0-50.0); MEAN CORPUSCULAR HEMOGLOBIN 32.1 pg (28.0-32.0); MEAN CORPUSCULAR VOLUME 92.6 fL (80.0-94.0); MEAN PLATELET VOLUME 8.1 fl (7.4-10.4); MONOCYTES % 10.8 % (2.0-8.0); NEUTROPHILS % 72.1 % (40.0-76.0); PLATELET 457 x1000/uL (130-400); RED BLOOD CELL COUNT 2.83 mill/uL (4.7-6.1)
[2019-04-25 05:48] LABS: PHOSPHORUS 2.1 mg/dL (2.5-4.9)
[2019-04-25] MEDS: FLUDROCORTISONE ACETATE 0.1MG TABLET GT SCH ×3 (05:53→18:19)
[2019-04-25] MEDS: FERROUS SULFATE 300MG/5ML UDC GT SCH ×3 (06:54→18:18)
[2019-04-25] MEDS ORDERED: FLUDROCORTISONE ACETATE 0.1MG TABLET PO SCH ×2 (07:45→17:00)
[2019-04-25] MEDS: DOCUSATE SODIUM SUGAR FREE 100MG/10ML UDC NG SCH ×2 (09:00→17:00)
[2019-04-25] MEDS ORDERED: ALBUMIN HUMAN 25GM/100ML (25%) IV SCH (09:00)
[2019-04-25] MEDS: LEVETIRACETAM 500MG TABLET GT SCH ×2 (09:12→21:11)
[2019-04-25] MEDS: MULTIVITAMINS,THER W-MINERALS TABLET GT SCH (09:13)
[2019-04-25] MEDS: MIDODRINE HCL 5MG TABLET GT SCH ×3 (09:13→18:18)
[2019-04-25] MEDS: FAMOTIDINE 20MG TABLET GT SCH ×2 (09:13→21:11)
[2019-04-25] MEDS: POTASSIUM CHLORIDE 20MEQ/PACKET PO SCH ×2 (09:13→18:18)
[2019-04-25] MEDS: POTASSIUM-SODIUM PHOSPHATE POWDER PACKET GT SCH ×3 (09:13→18:18)
[2019-04-26] VITALS (77 sets, daily range): BP systolic 57–148; BP diastolic 21–108
[2019-04-26] MEDS: ACETYLCYSTEINE 100MG/ML 10% VIAL 4ML INH SCH ×3 (00:23→16:12)
[2019-04-26] MEDS: IPRATROPIUM/ALBUTEROL 0.5-3(2.5)MG/3ML NEB HHN SCH ×6 (00:23→20:28)
[2019-04-26] MEDS: METOCLOPRAMIDE HCL 10MG/2ML VIAL IV SCH (02:42)
[2019-04-26 05:29] LABS: HEMATOCRIT. 26.3 % (42.0-52.0); HEMOGLOBIN. 9.2 g/dL (14.0-18.0); MEAN CORPUSCULAR HEMOGLOBIN 32.6 pg (28.0-32.0); MEAN CORPUSCULAR VOLUME 93.6 fL (80.0-94.0); PLATELET 486 x1000/uL (130-400); RED BLOOD CELL COUNT 2.81 mill/uL (4.7-6.1); RED CELL DISTRIBUTION WIDTH 13.2 % (11.6-14.6)
[2019-04-26 05:32] LABS: CHLORIDE 106 mEq/L (98-107)
[2019-04-26 05:39] LABS: PHOSPHORUS 2.8 mg/dL (2.5-4.9)
[2019-04-26] MEDS ORDERED: FLUDROCORTISONE ACETATE 0.1MG TABLET PO SCH (06:00)
[2019-04-26] MEDS: FERROUS SULFATE 300MG/5ML UDC GT SCH ×3 (06:45→16:56)
[2019-04-26 07:59] LABS: PLATELET ESTIMATE INCREASED
[2019-04-26] MEDS: FLUDROCORTISONE ACETATE 0.1MG TABLET GT SCH ×3 (08:44→16:56)
[2019-04-26] MEDS: LEVETIRACETAM 500MG TABLET GT SCH ×2 (08:44→20:47)
[2019-04-26] MEDS: MULTIVITAMINS,THER W-MINERALS TABLET GT SCH (08:44)
[2019-04-26] MEDS: MIDODRINE HCL 5MG TABLET GT SCH ×3 (08:44→16:56)
[2019-04-26] MEDS: FAMOTIDINE 20MG TABLET GT SCH ×2 (08:45→20:47)
[2019-04-26] MEDS: POTASSIUM CHLORIDE 20MEQ/PACKET PO SCH ×2 (08:45→16:56)
[2019-04-26] MEDS: POTASSIUM-SODIUM PHOSPHATE POWDER PACKET GT SCH ×3 (08:45→16:56)
[2019-04-26] MEDS: DOCUSATE SODIUM SUGAR FREE 100MG/10ML UDC NG SCH ×2 (08:45→16:57)
[2019-04-26] MEDS: ACETAMINOPHEN 650MG/20.3ML UDC GT PRN (09:11)
[2019-04-26] MEDS ORDERED: METOPROLOL TARTRATE 5MG/5ML VIAL IV NR (09:15)
[2019-04-26] MEDS ORDERED: SORBITOL 70% SOLN 30ML GT NR (09:15)
[2019-04-26] MEDS ORDERED: NA PHOS,M-B/NA PHOS,DI-BA ENEMA 118ML PR NR (09:15)
[2019-04-26] MEDS ORDERED: ALBUMIN HUMAN 25GM/100ML (25%) IV PRN (09:45)
[2019-04-26] MEDS: METOCLOPRAMIDE HCL 5MG TABLET GT SCH ×2 (11:56→20:47)
[2019-04-26 19:22] LABS: BG BASE EXCESS -0.7 mmol/L (-2.0-2.0); BG CARBOXYHEMOGLOBIN 0.3 % (0.5-1.5); BG FRACTION INSPIRED OXYGEN 36; BG HCO3 ACT 21.2 mmol/L (22.0-26.0); BG METHEMOGLOBIN 0.1 % (0.0-1.5); BG OXYHEMOGLOBIN 89.6 % (94.0-97.0); BG PCO2 26.8 mmHg (35.0-45.0); BG PH 7.517 (7.350-7.450); BG PO2 55.3 mmHg (75.0-100.0); BG SAMPLE SITE RIGHT RADIAL; BG VENT MODE NASAL CANNULA
[2019-04-26] MEDS: METOPROLOL TARTRATE 25MG TABLET GT SCH (20:47)
[2019-04-27] VITALS (45 sets, daily range): BP systolic 89–156; BP diastolic 53–102
[2019-04-27] MEDS: ACETYLCYSTEINE 100MG/ML 10% VIAL 4ML INH SCH ×3 (00:27→15:41)
[2019-04-27] MEDS: IPRATROPIUM/ALBUTEROL 0.5-3(2.5)MG/3ML NEB HHN SCH ×7 (00:27→20:44)
[2019-04-27] MEDS: SODIUM CHLORIDE 0.9% FOR INH 3ML VIAL NEB INH SCH ×3 (00:49→20:44)
[2019-04-27] MEDS: METOCLOPRAMIDE HCL 5MG TABLET GT SCH ×2 (06:07→18:21)
[2019-04-27] MEDS: FERROUS SULFATE 300MG/5ML UDC GT SCH ×3 (06:07→18:21)
[2019-04-27 08:46] LABS: BG BASE EXCESS -0.3 mmol/L (-2.0-2.0); BG CARBOXYHEMOGLOBIN 0.3 % (0.5-1.5); BG DEOXYHEMOGLOBIN 5.3 % (0.0-5.0); BG FRACTION INSPIRED OXYGEN 40; BG HCO3 ACT 21.1 mmol/L (22.0-26.0); BG METHEMOGLOBIN 0.3 % (0.0-1.5); BG OXYGEN SATURATION 94.7 % (92.0-98.5); BG OXYHEMOGLOBIN 94.1 % (94.0-97.0); BG PCO2 24.5 mmHg (35.0-45.0); BG PH 7.554 (7.350-7.450); BG PO2 66.6 mmHg (75.0-100.0); BG SAMPLE SITE RIGHT RADIAL; BG TOTAL HEMOGLOBIN 9.6 g/dL (12.0-18.0); BG VENT MODE MASK - AEROSOL
[2019-04-27] MEDS: DOCUSATE SODIUM SUGAR FREE 100MG/10ML UDC NG SCH ×2 (08:52→18:20)
[2019-04-27] MEDS: ACETAMINOPHEN 650MG/20.3ML UDC GT PRN (08:52)
[2019-04-27] MEDS: POTASSIUM-SODIUM PHOSPHATE POWDER PACKET GT SCH ×3 (08:52→18:21)
[2019-04-27] MEDS: POTASSIUM CHLORIDE 20MEQ/PACKET PO SCH ×2 (08:52→18:20)
[2019-04-27] MEDS: LEVETIRACETAM 500MG TABLET GT SCH ×2 (08:55→20:17)
[2019-04-27] MEDS: METOPROLOL TARTRATE 25MG TABLET GT SCH ×2 (08:55→20:18)
[2019-04-27] MEDS: MIDODRINE HCL 5MG TABLET GT SCH ×3 (08:55→18:21)
[2019-04-27] MEDS: FAMOTIDINE 20MG TABLET GT SCH ×2 (08:56→20:18)
[2019-04-27] MEDS: MULTIVITAMINS,THER W-MINERALS TABLET GT SCH (08:56)
[2019-04-27] MEDS: FLUDROCORTISONE ACETATE 0.1MG TABLET GT SCH ×3 (08:56→18:21)
[2019-04-27 10:33] LABS: BASOPHILS % 1.2 % (0.0-2.0); EOSINOPHILS % 0.1 % (0.0-5.0); HEMATOCRIT. 28.5 % (42.0-52.0); HEMOGLOBIN. 9.8 g/dL (14.0-18.0); LYMPHOCYTES % 7.8 % (20.0-50.0); MEAN CORPUSCULAR HEMOGLOBIN 32.2 pg (28.0-32.0); MEAN CORPUSCULAR VOLUME 93.6 fL (80.0-94.0); MEAN PLATELET VOLUME 7.5 fl (7.4-10.4); NEUTROPHILS % 80.9 % (40.0-76.0); PLATELET 620 x1000/uL (130-400); RED BLOOD CELL COUNT 3.04 mill/uL (4.7-6.1); RED CELL DISTRIBUTION WIDTH 13.3 % (11.6-14.6)
[2019-04-27 10:49] LABS: CHLORIDE 107 mEq/L (98-107)
[2019-04-27] MEDS: PIPERACILLIN/TAZOBACTAM 3.375 G in DEXT 5% WATER 100 ML IV SCH ×2 (11:00→18:20)
== END 2019-04-27 22:52 | DRG 870 ==
LOC: ER 19:16 → MICUNO 20:24 → EDBEDREQ 21:00 → EDBEDREQTM 21:00 → ENRESERV 04-13 00:05
PROVIDERS: ADMIT Internal Medicine Geriatric Medicine; ATTEND Internal Medicine Geriatric Medicine
PROC: 5A1955Z Respiratory Ventilation, Greater than 96 Consecutive Hours (ICD-10-PCS; principal; 2019-04-12)
PROC: 0BH17EZ Insertion of Endotracheal Airway into Trachea, Via Natural or Artificial Opening (ICD-10-PCS; 2019-04-12)
DX: A41.9 Sepsis, unspecified organism (principal); G92 Toxic encephalopathy; J96.01 Acute respiratory failure with hypoxia; R65.21 Severe sepsis with septic shock; J18.9 Pneumonia, unspecified organism; N17.0 Acute kidney failure with tubular necrosis; N39.0 Urinary tract infection, site not specified; E22.2 Syndrome of inappropriate secretion of antidiuretic hormone; I42.9 Cardiomyopathy, unspecified; K92.2 Gastrointestinal hemorrhage, unspecified; I50.20 Unspecified systolic (congestive) heart failure; I13.0 Hypertensive heart and chronic kidney disease with heart failure and stage 1 through stage 4 chronic kidney disease, or unspecified chronic kidney disease; J44.0 Chronic obstructive pulmonary disease with (acute) lower respiratory infection; E44.0 Moderate protein-calorie malnutrition; E83.39 Other disorders of phosphorus metabolism; I25.10 Atherosclerotic heart disease of native coronary artery without angina pectoris; I77.6 Arteritis, unspecified; I99.8 Other disorder of circulatory system; K56.41 Fecal impaction; K21.9 Gastro-esophageal reflux disease without esophagitis; E87.6 Hypokalemia; R74.0 Nonspecific elevation of levels of transaminase and lactic acid dehydrogenase [LDH]; M24.50 Contracture, unspecified joint; F20.9 Schizophrenia, unspecified; N18.9 Chronic kidney disease, unspecified; R00.0 Tachycardia, unspecified; E83.42 Hypomagnesemia; Z79.899 Other long term (current) drug therapy; Z93.1 Gastrostomy status; Z86.73 Personal history of transient ischemic attack (TIA), and cerebral infarction without residual deficits; Z68.22 Body mass index [BMI] 22.0-22.9, adult
CPT/HCPCS: 31500; 36415; 36600; 71045; 71250; 74018; 80048; 80053; 80202; 81003; 82375; 82533; 82553; 82805; 83540; 83550; 83605; 83735; 83880; 83930; 84100; 84145; 84443; 84484; 85025; 86038; 86140; 86850; 86900; 87070; 87804; 93005; 93306; 93923; 93970; 94002; 94003; 94640; 94667; 97162; 99291; C9113; J0278; J0692; J1650; J1956; J2060; J2185; J2250; J2370; J2405; J2543; J2597; J2765; J3010; J3370; J3475; J3480; J3490; J7030; J7050; J7060; J7608; J8597; P9047

== ENCOUNTER 2019-09-25 03:53 | Inpatient (IN) | payer MEDICARE, MEDICAID ==
[~2019-09-25] VITALS: Ht 175.3 cm; Wt 67.1 kg
[~2019-09-25 03:53] MED LIST: DOCU-150 MT; FAMO20TA8 PO; KEPP500 MT; METO25TA6 MT; SENN-170 MT
[2019-09-25] MEDS ORDERED: ACETAMINOPHEN 650MG SUPP PR STA (04:07)
[2019-09-25] MEDS ORDERED: PIPERACILLIN/TAZ 3.375G PREMIX 50 ML IV ONE (04:15)
[2019-09-25] MEDS ORDERED: SODIUM CHLORIDE 0.9% 1000ML BAG (SEPSIS BOLUS) IV ONE (04:15)
[2019-09-25] MEDS ORDERED: VANCOMYCIN 1 G PREMIX 200 ML IV ONE (04:15)
[2019-09-25 04:51] LABS: HEMATOCRIT. 36.3 % (42.0-52.0); HEMOGLOBIN. 12.4 g/dL (14.0-18.0); MEAN CORPUSCULAR HEMOGLOBIN 30.9 pg (28.0-32.0); MEAN CORPUSCULAR VOLUME 90.1 fL (80.0-94.0); PLATELET 275 x1000/uL (130-400); RED BLOOD CELL COUNT 4.03 mill/uL (4.7-6.1); RED CELL DISTRIBUTION WIDTH 14.4 % (11.6-14.6)
[2019-09-25 04:56] LABS: CHLORIDE 101 mEq/L (98-107)
[2019-09-25 05:00] LABS: INR 1.1; PROTHROMBIN TIME 11.7 sec (9.6-11.0)
[2019-09-25 06:20] LABS: PLATELET ESTIMATE NORMAL
[2019-09-25] MEDS ORDERED: IPRATROPIUM/ALBUTEROL 0.5-3(2.5)MG/3ML NEB NEB PRN (06:30)
[2019-09-25] MEDS ORDERED: PIPERACILLIN/TAZ 3.375G PREMIX 50 ML IV SCH (06:30)
[2019-09-25] MEDS ORDERED: DOCUSATE SODIUM 100MG CAPSULE PO PRN (06:30)
[2019-09-25] MEDS ORDERED: TRAMADOL 50MG TABLET PO PRN (06:30)
[2019-09-25] MEDS ORDERED: GUAIFENESIN 200MG/10ML SUGAR FREE UDC PO PRN (06:30)
[2019-09-25] MEDS ORDERED: ONDANSETRON HCL 4MG/2ML INJ IV PRN (06:30)
[2019-09-25] MEDS ORDERED: KETOROLAC 15MG/ML VIAL IV PRN (06:30)
[2019-09-25] MEDS ORDERED: MAGNESIUM/ALUMINUM HYDROXIDE/SIMETHICONE 30ML UDC PO PRN (06:30)
[2019-09-25] MEDS ORDERED: NITROGLYCERIN 0.4MG TABLET SL SL PRN (06:30)
[2019-09-25] MEDS ORDERED: CLONIDINE 0.1MG TABLET PO PRN (06:30)
[2019-09-25 08:36] LABS: COLOR URINE DK YELLOW (YELLOW); KETONES URINE TRACE (NEGATIVE); LEUKOCYTE ESTERASE URINE NEGATIVE (NEGATIVE); NITRITE URINE NEGATIVE (NEGATIVE); OCCULT BLOOD URINE 2+ (NEGATIVE); PROTEIN URINE 1+ (NEGATIVE); SPECIFIC GRAVITY URINE 1.026 (1.005-1.030); UROBILINOGEN URINE 0.2 E.U./dL (0.2-1.0)
[2019-09-25 08:38] LABS: CLARITY URINE HAZY (CLEAR)
[2019-09-25 09:00] VITALS: BP 92/62
[2019-09-25] MEDS ORDERED: ENOXAPARIN 40MG/0.4ML SYR SUBCUT SCH (09:08)
[2019-09-25] MEDS: ASPIRIN 325MG EC TABLET PO SCH (09:22)
[2019-09-25] MEDS: FAMOTIDINE 20MG TABLET PO SCH ×2 (09:22→20:01)
[2019-09-25] MEDS: ZINC SULFATE 220 MG ( 50 ) CAPSULE PO SCH (09:22)
[2019-09-25] MEDS: ASCORBIC ACID 500 MG TABLET PO SCH ×2 (09:22→20:01)
[2019-09-25] MEDS: VANCOMYCIN 1 G PREMIX 200 ML IV SCH ×2 (11:16→20:01)
[2019-09-25] MEDS: PIPERACILLIN/TAZOBACTAM 3.375 G in DEXT 5% WATER 100 ML IV SCH ×2 (11:16→17:27)
[2019-09-25] MEDS ORDERED: CLON0.1T PO (12:47)
[2019-09-25] MEDS ORDERED: TOPUD MT (12:47)
[2019-09-25] MEDS ORDERED: FLUD0.1T MT (12:47)
[2019-09-25] MEDS ORDERED: MULT-1146 MT (12:47)
[2019-09-25] MEDS ORDERED: ASCO500C6 MT (12:47)
[2019-09-25] MEDS ORDERED: MIDO10TA MT (12:47)
[2019-09-25] MEDS ORDERED: IPRA3AMP31 IH (12:47)
[2019-09-25 16:46] LABS: CREATINE KINASE 273 IU/L (39-308)
[2019-09-25 16:47] LABS: CREATINE KINASE MB FRACTION 2.6 ng/mL (0.5-3.6)
[2019-09-25] MEDS: ENOXAPARIN 80MG/0.8ML SYR SUBCUT SCH (18:52)
[2019-09-25 20:00] VITALS: BP 93/57
[2019-09-25] MEDS: LEVETIRACETAM 500MG/5ML CUP PO SCH (20:01)
[2019-09-25] MEDS ORDERED: ZOLPIDEM TARTRATE 5MG TABLET PO PRN (21:00)
[2019-09-25 23:46] LABS: BG BASE EXCESS 0.3 mmol/L (-2.0-2.0); BG CARBOXYHEMOGLOBIN 0.1 % (0.5-1.5); BG DEOXYHEMOGLOBIN 20.7 % (0.0-5.0); BG FRACTION INSPIRED OXYGEN 100; BG HCO3 ACT 23.6 mmol/L (22.0-26.0); BG METHEMOGLOBIN 0.2 % (0.0-1.5); BG OXYGEN SATURATION 79.2 % (92.0-98.5); BG PCO2 33.6 mmHg (35.0-45.0); BG PH 7.464 (7.350-7.450); BG PO2 41.4 mmHg (75.0-100.0); BG SAMPLE SITE RIGHT BRACHIAL; BG TOTAL HEMOGLOBIN 12.3 g/dL (12.0-18.0); BG VENT MODE MASK - NRB
[2019-09-26] VITALS (94 sets, daily range): BP systolic 73–154; BP diastolic 27–116
[2019-09-26] MEDS ORDERED: MIDAZOLAM HCL 100 MG in DEXT 5% WATER 80 ML IV PRN ×2
[2019-09-26] MEDS ORDERED: NOREPINEPHRINE 4 MG in DEXT 5% WATER 246 ML IV PRN ×2
[2019-09-26 00:01] LABS: CREATINE KINASE 273 IU/L (39-308)
[2019-09-26 00:02] LABS: CREATINE KINASE MB FRACTION 4.8 ng/mL (0.5-3.6)
[2019-09-26] MEDS: LORAZEPAM 2MG/ML CPJ IV PRN (00:56)
[2019-09-26] MEDS: PIPERACILLIN/TAZOBACTAM 3.375 G in DEXT 5% WATER 100 ML IV SCH ×5 (01:34→23:38)
[2019-09-26 01:48] LABS: BG BASE EXCESS -2.2 mmol/L (-2.0-2.0); BG CARBOXYHEMOGLOBIN 0.1 % (0.5-1.5); BG DEOXYHEMOGLOBIN 2.1 % (0.0-5.0); BG FRACTION INSPIRED OXYGEN 100; BG HCO3 ACT 20.4 mmol/L (22.0-26.0); BG METHEMOGLOBIN 0.2 % (0.0-1.5); BG OXYGEN SATURATION 97.9 % (92.0-98.5); BG OXYHEMOGLOBIN 97.6 % (94.0-97.0); BG PCO2 28.9 mmHg (35.0-45.0); BG PH 7.466 (7.350-7.450); BG PO2 102.7 mmHg (75.0-100.0); BG SAMPLE SITE RIGHT BRACHIAL; BG TIDAL VOLUME(mL) 500 mL; BG TOTAL HEMOGLOBIN 12.8 g/dL (12.0-18.0); BG VENT MODE VENT - A/C; BG VENT RATE 16 set
[2019-09-26] MEDS: PROPOFOL 10MG/ML 100ML 100 ML IV PRN ×2 (02:25→20:03)
[2019-09-26] MEDS: VANCOMYCIN 1 G PREMIX 200 ML IV SCH ×3 (03:13→20:00)
[2019-09-26] MEDS: ACETAMINOPHEN 325MG TABLET PO PRN ×2 (04:04→16:21)
[2019-09-26 05:44] LABS: BASOPHILS % 0.5 % (0.0-2.0); EOSINOPHILS % 0.8 % (0.0-5.0); HEMATOCRIT. 33.3 % (42.0-52.0); HEMOGLOBIN. 11.4 g/dL (14.0-18.0); LYMPHOCYTES % 7.7 % (20.0-50.0); MEAN CORPUSCULAR HEMOGLOBIN 31.2 pg (28.0-32.0); MEAN PLATELET VOLUME 8.6 fl (7.4-10.4); PLATELET 189 x1000/uL (130-400); RED BLOOD CELL COUNT 3.66 mill/uL (4.7-6.1); RED CELL DISTRIBUTION WIDTH 14.6 % (11.6-14.6)
[2019-09-26 06:04] LABS: CHLORIDE 102 mEq/L (98-107)
[2019-09-26] MEDS: ASCORBIC ACID 500 MG TABLET PO SCH ×2 (08:18→20:49)
[2019-09-26] MEDS: ENOXAPARIN 80MG/0.8ML SYR SUBCUT SCH (08:18)
[2019-09-26] MEDS: ZINC SULFATE 220 MG ( 50 ) CAPSULE PO SCH (08:18)
[2019-09-26] MEDS: LEVETIRACETAM 500MG/5ML CUP PO SCH ×2 (08:18→20:48)
[2019-09-26] MEDS: FAMOTIDINE 20MG TABLET PO SCH ×2 (08:18→20:49)
[2019-09-26] MEDS: ASPIRIN 325MG EC TABLET PO SCH (08:19)
[2019-09-26 08:21] LABS: BG BASE EXCESS -1.4 mmol/L (-2.0-2.0); BG CARBOXYHEMOGLOBIN 0.3 % (0.5-1.5); BG DEOXYHEMOGLOBIN 0.9 % (0.0-5.0); BG FRACTION INSPIRED OXYGEN 100; BG HCO3 ACT 21.2 mmol/L (22.0-26.0); BG METHEMOGLOBIN 0.6 % (0.0-1.5); BG OXYGEN SATURATION 99.1 % (92.0-98.5); BG OXYHEMOGLOBIN 98.2 % (94.0-97.0); BG PCO2 29.1 mmHg (35.0-45.0); BG PO2 233.5 mmHg (75.0-100.0); BG SAMPLE SITE RIGHT RADIAL; BG TIDAL VOLUME(mL) 500 mL; BG TOTAL HEMOGLOBIN 11.8 g/dL (12.0-18.0); BG VENT MODE VENT - A/C; BG VENT RATE 16 set
[2019-09-26] MEDS ORDERED: IPRATROPIUM/ALBUTEROL 0.5-3(2.5)MG/3ML NEB HHN PRN (16:00)
[2019-09-26] MEDS ORDERED: POTASSIUM CHLORIDE 20MEQ TABLET SR PO NR (16:00)
[2019-09-26] MEDS ORDERED: PROPOFOL 10MG/ML 100ML 100 ML IV PRN (16:30)
[2019-09-26] MEDS: IPRATROPIUM/ALBUTEROL 0.5-3(2.5)MG/3ML NEB HHN SCH (20:34)
[2019-09-26] MEDS: ENOXAPARIN 60MG/0.6ML SYR SUBCUT SCH (20:47)
[2019-09-27] VITALS (74 sets, daily range): BP systolic 75–144; BP diastolic 37–116
[2019-09-27] MEDS: IPRATROPIUM/ALBUTEROL 0.5-3(2.5)MG/3ML NEB HHN SCH ×7 (00:37→23:58)
[2019-09-27] MEDS: VANCOMYCIN 1 G PREMIX 200 ML IV SCH (05:15)
[2019-09-27 05:57] LABS: VANCOMYCIN TROUGH 24.4 ug/mL (5.0-10.0)
[2019-09-27] MEDS: PIPERACILLIN/TAZOBACTAM 3.375 G in DEXT 5% WATER 100 ML IV SCH ×3 (06:32→17:32)
[2019-09-27 06:54] LABS: CHLORIDE 106 mEq/L (98-107)
[2019-09-27 07:58] LABS: BASOPHILS % 0.5 % (0.0-2.0); EOSINOPHILS % 0.7 % (0.0-5.0); HEMOGLOBIN. 10.7 g/dL (14.0-18.0); LYMPHOCYTES % 7.8 % (20.0-50.0); MEAN CORPUSCULAR HEMOGLOBIN 31.4 pg (28.0-32.0); MEAN PLATELET VOLUME 9.1 fl (7.4-10.4); MONOCYTES % 8.2 % (2.0-8.0); NEUTROPHILS % 82.8 % (40.0-76.0); PLATELET 284 x1000/uL (130-400); RED BLOOD CELL COUNT 3.41 mill/uL (4.7-6.1); RED CELL DISTRIBUTION WIDTH 14.4 % (11.6-14.6)
[2019-09-27] MEDS: LEVETIRACETAM 500MG/5ML CUP PO SCH ×2 (09:00→21:24)
[2019-09-27 09:27] LABS: BG BASE EXCESS 1.5 mmol/L (-2.0-2.0); BG CARBOXYHEMOGLOBIN 0.3 % (0.5-1.5); BG DEOXYHEMOGLOBIN 1.4 % (0.0-5.0); BG FRACTION INSPIRED OXYGEN 40; BG HCO3 ACT 24.7 mmol/L (22.0-26.0); BG METHEMOGLOBIN 0.3 % (0.0-1.5); BG OXYGEN SATURATION 98.6 % (92.0-98.5); BG PCO2 33.9 mmHg (35.0-45.0); BG PO2 132.4 mmHg (75.0-100.0); BG SAMPLE SITE RIGHT BRACHIAL; BG TIDAL VOLUME(mL) 500 mL; BG TOTAL HEMOGLOBIN 10.9 g/dL (12.0-18.0); BG VENT MODE VENT - A/C; BG VENT RATE 14 set
[2019-09-27] MEDS: ZINC SULFATE 220 MG ( 50 ) CAPSULE PO SCH (09:35)
[2019-09-27] MEDS: ASCORBIC ACID 500 MG TABLET PO SCH ×2 (09:35→21:24)
[2019-09-27] MEDS: ASPIRIN 325MG EC TABLET PO SCH (09:35)
[2019-09-27] MEDS: FAMOTIDINE 20MG TABLET PO SCH ×2 (09:35→21:24)
[2019-09-27] MEDS: ENOXAPARIN 60MG/0.6ML SYR SUBCUT SCH ×2 (09:36→21:24)
[2019-09-27] MEDS: NOREPINEPHRINE 8 MG in DEXTROSE 5% WATER 250 ML IV PRN ×2 (09:37→21:02)
[2019-09-27] MEDS: VANCOMYCIN 750 MG PREMIX 150 ML IV SCH (15:42)
[2019-09-27] MEDS: PROPOFOL 10MG/ML 100ML 100 ML IV PRN (20:03)
[2019-09-27] MEDS: ACETAMINOPHEN 325MG TABLET PO PRN (22:03)
[2019-09-28] VITALS (97 sets, daily range): BP systolic 81–121; BP diastolic 46–91
[2019-09-28] MEDS: VANCOMYCIN 750 MG PREMIX 150 ML IV SCH ×2 (01:18→08:53)
[2019-09-28] MEDS: PIPERACILLIN/TAZOBACTAM 3.375 G in DEXT 5% WATER 100 ML IV SCH ×5 (01:18→23:52)
[2019-09-28] MEDS: LORAZEPAM 2MG/ML CPJ IV PRN ×2 (01:18→21:07)
[2019-09-28] MEDS: PROPOFOL 10MG/ML 100ML 100 ML IV PRN ×4 (03:21→22:55)
[2019-09-28] MEDS: IPRATROPIUM/ALBUTEROL 0.5-3(2.5)MG/3ML NEB HHN SCH ×5 (04:16→20:37)
[2019-09-28 05:57] LABS: CHLORIDE 104 mEq/L (98-107)
[2019-09-28] MEDS: FAMOTIDINE 20MG TABLET PO SCH ×2 (08:52→20:23)
[2019-09-28] MEDS: ZINC SULFATE 220 MG ( 50 ) CAPSULE PO SCH (08:52)
[2019-09-28] MEDS: ASCORBIC ACID 500 MG TABLET PO SCH ×2 (08:52→20:23)
[2019-09-28] MEDS: ASPIRIN 325MG EC TABLET PO SCH (08:52)
[2019-09-28] MEDS: LEVETIRACETAM 500MG/5ML CUP PO SCH ×2 (08:52→20:23)
[2019-09-28] MEDS: ENOXAPARIN 60MG/0.6ML SYR SUBCUT SCH ×2 (08:53→20:23)
[2019-09-28] MEDS: NOREPINEPHRINE 8 MG in DEXTROSE 5% WATER 250 ML IV PRN (09:45)
[2019-09-28] MEDS ORDERED: FENTANYL CITRATE/PF 1,000 MCG in SODIUM CHLORIDE 0.9% 80 ML IV PRN (11:00)
[2019-09-28] MEDS ORDERED: POTASSIUM CHLORIDE INJ 40 MEQ in DEXT 5% WATER 250 ML IV NR (11:00)
[2019-09-28] MEDS: ACETYLCYSTEINE 100MG/ML 10% VIAL 4ML INH SCH ×2 (15:16→20:37)
[2019-09-28] MEDS: VANCOMYCIN 1 G PREMIX 200 ML IV SCH (20:23)
[2019-09-29] VITALS (92 sets, daily range): BP systolic 76–116; BP diastolic 23–81
[2019-09-29] MEDS: IPRATROPIUM/ALBUTEROL 0.5-3(2.5)MG/3ML NEB HHN SCH ×7 (00:15→20:00)
[2019-09-29] MEDS: PROPOFOL 10MG/ML 100ML 100 ML IV PRN ×4 (04:15→23:51)
[2019-09-29] MEDS: PIPERACILLIN/TAZOBACTAM 3.375 G in DEXT 5% WATER 100 ML IV SCH ×4 (05:08→23:36)
[2019-09-29 07:17] LABS: BG BASE EXCESS 3.6 mmol/L (-2.0-2.0); BG FRACTION INSPIRED OXYGEN 35; BG HCO3 ACT 26.2 mmol/L (22.0-26.0); BG PCO2 33.6 mmHg (35.0-45.0); BG PH 7.509 (7.350-7.450); BG PO2 146.6 mmHg (75.0-100.0); BG SAMPLE SITE RIGHT BRACHIAL; BG TIDAL VOLUME(mL) 500 mL; BG VENT MODE VENT - A/C; BG VENT RATE 12 set
[2019-09-29] MEDS ORDERED: POTASSIUM CHLORIDE 20MEQ/PACKET PO NR (08:00)
[2019-09-29 08:16] LABS: CHLORIDE 106 mEq/L (98-107)
[2019-09-29 08:22] LABS: PHOSPHORUS 3.8 mg/dL (2.5-4.9)
[2019-09-29 08:25] LABS: BASOPHILS % 0.9 % (0.0-2.0); EOSINOPHILS % 9.2 % (0.0-5.0); HEMATOCRIT. 28.4 % (42.0-52.0); HEMOGLOBIN. 9.5 g/dL (14.0-18.0); LYMPHOCYTES % 16.8 % (20.0-50.0); MEAN CORPUSCULAR HEMOGLOBIN 30.7 pg (28.0-32.0); MEAN CORPUSCULAR VOLUME 92.3 fL (80.0-94.0); MEAN PLATELET VOLUME 8.6 fl (7.4-10.4); MONOCYTES % 11.4 % (2.0-8.0); NEUTROPHILS % 61.7 % (40.0-76.0); PLATELET 217 x1000/uL (130-400); RED BLOOD CELL COUNT 3.08 mill/uL (4.7-6.1); RED CELL DISTRIBUTION WIDTH 14.6 % (11.6-14.6)
[2019-09-29] MEDS: VANCOMYCIN 1 G PREMIX 200 ML IV SCH ×2 (08:55→20:44)
[2019-09-29] MEDS: ENOXAPARIN 60MG/0.6ML SYR SUBCUT SCH ×2 (08:55→20:45)
[2019-09-29] MEDS: ZINC SULFATE 220 MG ( 50 ) CAPSULE PO SCH (08:55)
[2019-09-29] MEDS: ASPIRIN 325MG EC TABLET PO SCH (08:55)
[2019-09-29] MEDS: FAMOTIDINE 20MG TABLET PO SCH ×2 (08:55→20:44)
[2019-09-29] MEDS: ASCORBIC ACID 500 MG TABLET PO SCH ×2 (08:55→20:45)
[2019-09-29] MEDS: LEVETIRACETAM 500MG/5ML CUP PO SCH ×2 (08:55→20:44)
[2019-09-29] MEDS ORDERED: KCL 20MEQ/100ML PREMIX 100 ML IV NR (09:00)
[2019-09-29] MEDS: ACETYLCYSTEINE 100MG/ML 10% VIAL 4ML INH SCH (09:01)
[2019-09-29] MEDS: QUETIAPINE FUMARATE 50MG TABLET GT SCH (20:44)
[2019-09-30] VITALS (76 sets, daily range): BP systolic 74–134; BP diastolic 54–94
[2019-09-30] MEDS: NOREPINEPHRINE 8 MG in DEXTROSE 5% WATER 250 ML IV PRN (01:10)
[2019-09-30] MEDS: IPRATROPIUM/ALBUTEROL 0.5-3(2.5)MG/3ML NEB HHN SCH ×5 (04:17→20:16)
[2019-09-30] MEDS: PIPERACILLIN/TAZOBACTAM 3.375 G in DEXT 5% WATER 100 ML IV SCH ×3 (05:09→17:37)
[2019-09-30] MEDS: PROPOFOL 10MG/ML 100ML 100 ML IV PRN (05:49)
[2019-09-30 07:13] LABS: CHLORIDE 106 mEq/L (98-107)
[2019-09-30 07:14] LABS: BASOPHILS % 0.7 % (0.0-2.0); EOSINOPHILS % 9.3 % (0.0-5.0); HEMATOCRIT. 30.1 % (42.0-52.0); LYMPHOCYTES % 13.3 % (20.0-50.0); MEAN CORPUSCULAR HEMOGLOBIN 30.9 pg (28.0-32.0); MEAN CORPUSCULAR VOLUME 92.9 fL (80.0-94.0); MEAN PLATELET VOLUME 8.2 fl (7.4-10.4); MONOCYTES % 13.1 % (2.0-8.0); NEUTROPHILS % 63.6 % (40.0-76.0); PLATELET 267 x1000/uL (130-400); RED BLOOD CELL COUNT 3.23 mill/uL (4.7-6.1); RED CELL DISTRIBUTION WIDTH 14.8 % (11.6-14.6)
[2019-09-30 07:24] LABS: PHOSPHORUS 3.7 mg/dL (2.5-4.9)
[2019-09-30] MEDS: ACETYLCYSTEINE 100MG/ML 10% VIAL 4ML INH SCH ×2 (07:55→15:10)
[2019-09-30] MEDS: ASPIRIN 325MG EC TABLET PO SCH (08:37)
[2019-09-30] MEDS: VANCOMYCIN 1 G PREMIX 200 ML IV SCH (08:37)
[2019-09-30] MEDS: ZINC SULFATE 220 MG ( 50 ) CAPSULE PO SCH (08:37)
[2019-09-30] MEDS: LEVETIRACETAM 500MG/5ML CUP PO SCH ×2 (08:37→20:19)
[2019-09-30] MEDS: ASCORBIC ACID 500 MG TABLET PO SCH ×2 (08:38→20:19)
[2019-09-30] MEDS: ENOXAPARIN 60MG/0.6ML SYR SUBCUT SCH ×2 (08:38→20:19)
[2019-09-30] MEDS: FAMOTIDINE 20MG TABLET PO SCH ×2 (08:38→20:19)
[2019-09-30] MEDS ORDERED: SODIUM CHLORIDE 0.9% 500 ML IV NR (10:15)
[2019-09-30] MEDS ORDERED: ACETAZOLAMIDE SODIUM 500MG/VIAL IV NR (12:00)
[2019-09-30 12:02] LABS: BG BASE EXCESS 2.9 mmol/L (-2.0-2.0); BG CARBOXYHEMOGLOBIN 0.3 % (0.5-1.5); BG DEOXYHEMOGLOBIN 2.6 % (0.0-5.0); BG FRACTION INSPIRED OXYGEN 35; BG HCO3 ACT 26.9 mmol/L (22.0-26.0); BG METHEMOGLOBIN 0.1 % (0.0-1.5); BG OXYGEN SATURATION 97.4 % (92.0-98.5); BG PCO2 38.8 mmHg (35.0-45.0); BG PH 7.459 (7.350-7.450); BG PO2 96.6 mmHg (75.0-100.0); BG PRESSURE SUPPORT 8; BG SAMPLE SITE RIGHT BRACHIAL; BG TOTAL HEMOGLOBIN 10.3 g/dL (12.0-18.0); BG VENT MODE VENT - CPAP
[2019-09-30] MEDS: QUETIAPINE FUMARATE 50MG TABLET GT SCH (20:19)
[2019-10-01] VITALS (39 sets, daily range): BP systolic 78–116; BP diastolic 41–81
[2019-10-01] MEDS: ACETYLCYSTEINE 100MG/ML 10% VIAL 4ML INH SCH ×4 (00:41→20:37)
[2019-10-01] MEDS: IPRATROPIUM/ALBUTEROL 0.5-3(2.5)MG/3ML NEB HHN SCH ×6 (00:41→20:37)
[2019-10-01] MEDS: PIPERACILLIN/TAZOBACTAM 3.375 G in DEXT 5% WATER 100 ML IV SCH ×4 (00:43→17:02)
[2019-10-01 05:30] LABS: BASOPHILS % 1.2 % (0.0-2.0); HEMATOCRIT. 29.6 % (42.0-52.0); HEMOGLOBIN. 10.1 g/dL (14.0-18.0); LYMPHOCYTES % 20.9 % (20.0-50.0); MEAN CORPUSCULAR HEMOGLOBIN 31.3 pg (28.0-32.0); MEAN CORPUSCULAR VOLUME 92.4 fL (80.0-94.0); NEUTROPHILS % 53.9 % (40.0-76.0); PLATELET 301 x1000/uL (130-400); RED BLOOD CELL COUNT 3.21 mill/uL (4.7-6.1); RED CELL DISTRIBUTION WIDTH 14.8 % (11.6-14.6)
[2019-10-01 05:42] LABS: CHLORIDE 104 mEq/L (98-107)
[2019-10-01] MEDS: VANCOMYCIN 1250MG in DEXTROSE 5% WATER 250ML IV SCH (06:04)
[2019-10-01] MEDS ORDERED: DIGOXIN 500MCG/2ML AMP IV ONE (08:45)
[2019-10-01] MEDS ORDERED: DILTIAZEM HCL 125 MG in DEXT 5% WATER 100 ML IV PRN (08:45)
[2019-10-01 09:18] LABS: BG BASE EXCESS -0.1 mmol/L (-2.0-2.0); BG CARBOXYHEMOGLOBIN 0.3 % (0.5-1.5); BG DEOXYHEMOGLOBIN 1.9 % (0.0-5.0); BG FRACTION INSPIRED OXYGEN 21; BG HCO3 ACT 23.3 mmol/L (22.0-26.0); BG METHEMOGLOBIN 0.1 % (0.0-1.5); BG OXYGEN SATURATION 98.1 % (92.0-98.5); BG OXYHEMOGLOBIN 97.7 % (94.0-97.0); BG PCO2 33.8 mmHg (35.0-45.0); BG PH 7.457 (7.350-7.450); BG PO2 111.8 mmHg (75.0-100.0); BG SAMPLE SITE RIGHT RADIAL; BG TOTAL HEMOGLOBIN 11.1 g/dL (12.0-18.0); BG VENT MODE ROOM AIR
[2019-10-01] MEDS ORDERED: MIDODRINE HCL 5MG TABLET PO SCH (09:45)
[2019-10-01] MEDS: LEVETIRACETAM 500MG/5ML CUP PO SCH ×2 (10:20→20:55)
[2019-10-01] MEDS: ENOXAPARIN 60MG/0.6ML SYR SUBCUT SCH ×2 (10:20→20:55)
[2019-10-01] MEDS: ZINC SULFATE 220 MG ( 50 ) CAPSULE PO SCH (10:20)
[2019-10-01] MEDS: FAMOTIDINE 20MG TABLET PO SCH ×2 (10:20→20:55)
[2019-10-01] MEDS: ASCORBIC ACID 500 MG TABLET PO SCH ×2 (10:20→20:55)
[2019-10-01] MEDS: ASPIRIN 325MG EC TABLET PO SCH (10:20)
[2019-10-01] MEDS: MIDODRINE HCL 5MG TABLET PO SCH ×2 (15:16→20:55)
[2019-10-01] MEDS: ACETAMINOPHEN 325MG TABLET PO PRN (20:55)
[2019-10-01] MEDS: QUETIAPINE FUMARATE 50MG TABLET GT SCH (20:55)
[2019-10-02] VITALS (21 sets, daily range): BP systolic 95–120; BP diastolic 62–83
[2019-10-02] MEDS: PIPERACILLIN/TAZOBACTAM 3.375 G in DEXT 5% WATER 100 ML IV SCH ×5 (00:04→23:34)
[2019-10-02] MEDS: VANCOMYCIN 1250MG in DEXTROSE 5% WATER 250ML IV SCH ×2 (00:04→18:15)
[2019-10-02] MEDS: IPRATROPIUM/ALBUTEROL 0.5-3(2.5)MG/3ML NEB HHN SCH ×6 (00:44→20:37)
[2019-10-02] MEDS: MIDODRINE HCL 5MG TABLET PO SCH ×3 (06:23→22:16)
[2019-10-02] MEDS: ACETYLCYSTEINE 100MG/ML 10% VIAL 4ML INH SCH ×2 (07:47→15:30)
[2019-10-02] MEDS: LEVETIRACETAM 500MG/5ML CUP PO SCH ×2 (08:55→20:06)
[2019-10-02] MEDS: FAMOTIDINE 20MG TABLET PO SCH ×2 (08:55→20:06)
[2019-10-02] MEDS: ASCORBIC ACID 500 MG TABLET PO SCH ×2 (08:55→20:06)
[2019-10-02] MEDS: ASPIRIN 325MG EC TABLET PO SCH (08:55)
[2019-10-02] MEDS: ZINC SULFATE 220 MG ( 50 ) CAPSULE PO SCH (08:55)
[2019-10-02] MEDS: ENOXAPARIN 60MG/0.6ML SYR SUBCUT SCH ×2 (09:54→20:06)
[2019-10-02] MEDS: QUETIAPINE FUMARATE 50MG TABLET GT SCH (20:06)
[2019-10-03] VITALS (12 sets, daily range): BP systolic 95–129; BP diastolic 62–94
[2019-10-03] MEDS: ACETAMINOPHEN 325MG TABLET PO PRN ×2 (00:21→20:26)
[2019-10-03] MEDS: ACETYLCYSTEINE 100MG/ML 10% VIAL 4ML INH SCH ×3 (00:45→21:02)
[2019-10-03] MEDS ORDERED: SODIUM CHLORIDE 0.9% 250 ML IV NR (03:45)
[2019-10-03] MEDS: IPRATROPIUM/ALBUTEROL 0.5-3(2.5)MG/3ML NEB HHN SCH ×6 (04:00→21:02)
[2019-10-03] MEDS: PIPERACILLIN/TAZOBACTAM 3.375 G in DEXT 5% WATER 100 ML IV SCH ×3 (05:18→17:32)
[2019-10-03] MEDS: MIDODRINE HCL 5MG TABLET PO SCH ×3 (05:29→21:19)
[2019-10-03 07:27] LABS: BASOPHILS % 0.6 % (0.0-2.0); HEMATOCRIT. 32.3 % (42.0-52.0); LYMPHOCYTES % 9.7 % (20.0-50.0); MEAN CORPUSCULAR VOLUME 90.9 fL (80.0-94.0); MEAN PLATELET VOLUME 7.6 fl (7.4-10.4); NEUTROPHILS % 79.7 % (40.0-76.0); PLATELET 393 x1000/uL (130-400); RED BLOOD CELL COUNT 3.56 mill/uL (4.7-6.1); RED CELL DISTRIBUTION WIDTH 14.3 % (11.6-14.6)
[2019-10-03 07:36] LABS: CHLORIDE 101 mEq/L (98-107)
[2019-10-03] MEDS: ZINC SULFATE 220 MG ( 50 ) CAPSULE PO SCH (08:26)
[2019-10-03] MEDS: FAMOTIDINE 20MG TABLET PO SCH ×2 (08:26→20:02)
[2019-10-03] MEDS: LEVETIRACETAM 500MG/5ML CUP PO SCH ×2 (08:26→20:02)
[2019-10-03] MEDS: ASPIRIN 325MG EC TABLET PO SCH (08:26)
[2019-10-03] MEDS: ENOXAPARIN 60MG/0.6ML SYR SUBCUT SCH ×2 (08:26→20:01)
[2019-10-03] MEDS: ASCORBIC ACID 500 MG TABLET PO SCH ×2 (08:27→20:02)
[2019-10-03] MEDS ORDERED: SODIUM CHLORIDE 0.9% 250 ML IV ONE (09:15)
[2019-10-03 12:43] LABS: BG BASE EXCESS -0.9 mmol/L (-2.0-2.0); BG CARBOXYHEMOGLOBIN 0.3 % (0.5-1.5); BG FRACTION INSPIRED OXYGEN 21; BG HCO3 ACT 21.8 mmol/L (22.0-26.0); BG METHEMOGLOBIN 0.2 % (0.0-1.5); BG OXYHEMOGLOBIN 95.5 % (94.0-97.0); BG PCO2 29.9 mmHg (35.0-45.0); BG PO2 77.4 mmHg (75.0-100.0); BG SAMPLE SITE RIGHT BRACHIAL; BG TOTAL HEMOGLOBIN 11.9 g/dL (12.0-18.0); BG VENT MODE ROOM AIR
[2019-10-03] MEDS ORDERED: VANCOMYCIN 1 G PREMIX 200 ML IV SCH (13:00)
[2019-10-03] MEDS: VANCOMYCIN 750 MG PREMIX 150 ML IV SCH (13:45)
[2019-10-03] MEDS: QUETIAPINE FUMARATE 50MG TABLET GT SCH (20:02)
[2019-10-03] MEDS ORDERED: ALBUMIN HUMAN 25GM/100ML (25%) IV NR (22:00)
[2019-10-04] VITALS (10 sets, daily range): BP systolic 100–150; BP diastolic 62–89
[2019-10-04] MEDS: PIPERACILLIN/TAZOBACTAM 3.375 G in DEXT 5% WATER 100 ML IV SCH ×5 (00:20→23:05)
[2019-10-04] MEDS: VANCOMYCIN 750 MG PREMIX 150 ML IV SCH ×2 (01:04→13:22)
[2019-10-04] MEDS: IPRATROPIUM/ALBUTEROL 0.5-3(2.5)MG/3ML NEB HHN SCH ×6 (04:29→20:00)
[2019-10-04] MEDS: MIDODRINE HCL 5MG TABLET PO SCH ×3 (05:14→21:36)
[2019-10-04 06:38] LABS: BG BASE EXCESS 1.9 mmol/L (-2.0-2.0); BG CARBOXYHEMOGLOBIN 0.1 % (0.5-1.5); BG DEOXYHEMOGLOBIN 3.6 % (0.0-5.0); BG HCO3 ACT 24.8 mmol/L (22.0-26.0); BG METHEMOGLOBIN 0.2 % (0.0-1.5); BG OXYGEN SATURATION 96.4 % (92.0-98.5); BG OXYHEMOGLOBIN 96.1 % (94.0-97.0); BG PCO2 33.1 mmHg (35.0-45.0); BG PH 7.493 (7.350-7.450); BG PO2 83.5 mmHg (75.0-100.0); BG SAMPLE SITE RIGHT BRACHIAL; BG TOTAL HEMOGLOBIN 11.3 g/dL (12.0-18.0); BG VENT MODE ROOM AIR
[2019-10-04] MEDS: ZINC SULFATE 220 MG ( 50 ) CAPSULE PO SCH (08:29)
[2019-10-04] MEDS: ASCORBIC ACID 500 MG TABLET PO SCH ×2 (08:29→20:09)
[2019-10-04] MEDS: ASPIRIN 325MG EC TABLET PO SCH (08:29)
[2019-10-04] MEDS: LEVETIRACETAM 500MG/5ML CUP PO SCH ×2 (08:29→20:08)
[2019-10-04] MEDS: FAMOTIDINE 20MG TABLET PO SCH ×2 (08:29→20:09)
[2019-10-04] MEDS: ENOXAPARIN 60MG/0.6ML SYR SUBCUT SCH ×2 (08:30→20:09)
[2019-10-04] MEDS: SODIUM CHLORIDE 1000MG TABLET PO SCH ×2 (13:22→17:58)
[2019-10-04] MEDS: QUETIAPINE FUMARATE 50MG TABLET GT SCH (20:08)
[2019-10-04] MEDS: ACETAMINOPHEN 325MG TABLET PO PRN (21:36)
[2019-10-04] MEDS ORDERED: ALBUMIN HUMAN 25GM/100ML (25%) IV NR (23:00)
[2019-10-04] MEDS: SODIUM CHLORIDE 0.9% 1,000 ML IV SCH (23:04)
[2019-10-04] MEDS: FLUDROCORTISONE ACETATE 0.1MG TABLET PO SCH (23:04)
[2019-10-05] VITALS (11 sets, daily range): BP systolic 97–119; BP diastolic 54–76
[2019-10-05] MEDS: VANCOMYCIN 750 MG PREMIX 150 ML IV SCH (01:46)
[2019-10-05] MEDS: IPRATROPIUM/ALBUTEROL 0.5-3(2.5)MG/3ML NEB HHN SCH ×6 (03:01→20:13)
[2019-10-05] MEDS: PIPERACILLIN/TAZOBACTAM 3.375 G in DEXT 5% WATER 100 ML IV SCH ×4 (05:31→23:41)
[2019-10-05] MEDS: MIDODRINE HCL 5MG TABLET PO SCH ×3 (05:32→21:09)
[2019-10-05 06:38] LABS: CHLORIDE 102 mEq/L (98-107)
[2019-10-05] MEDS: LEVETIRACETAM 500MG/5ML CUP PO SCH ×2 (08:32→21:08)
[2019-10-05] MEDS: FLUDROCORTISONE ACETATE 0.1MG TABLET PO SCH (08:32)
[2019-10-05] MEDS: ASCORBIC ACID 500 MG TABLET PO SCH ×2 (08:32→21:09)
[2019-10-05] MEDS: SODIUM CHLORIDE 1000MG TABLET PO SCH ×2 (08:32→17:57)
[2019-10-05] MEDS: ASPIRIN 325MG EC TABLET PO SCH (08:32)
[2019-10-05] MEDS: ZINC SULFATE 220 MG ( 50 ) CAPSULE PO SCH (08:32)
[2019-10-05] MEDS: SODIUM CHLORIDE 0.9% 1,000 ML IV SCH ×2 (08:32→17:57)
[2019-10-05] MEDS: FAMOTIDINE 20MG TABLET PO SCH ×2 (08:32→21:08)
[2019-10-05] MEDS: ENOXAPARIN 60MG/0.6ML SYR SUBCUT SCH ×2 (08:33→21:08)
[2019-10-05] MEDS: VANCOMYCIN 1 G PREMIX 200 ML IV SCH (12:55)
[2019-10-05] MEDS: QUETIAPINE FUMARATE 50MG TABLET GT SCH (21:09)
[2019-10-06] VITALS (12 sets, daily range): BP systolic 90–137; BP diastolic 53–81
[2019-10-06] MEDS: IPRATROPIUM/ALBUTEROL 0.5-3(2.5)MG/3ML NEB HHN SCH ×5 (00:08→15:48)
[2019-10-06] MEDS: VANCOMYCIN 1 G PREMIX 200 ML IV SCH ×2 (00:32→12:02)
[2019-10-06] MEDS: PIPERACILLIN/TAZOBACTAM 3.375 G in DEXT 5% WATER 100 ML IV SCH ×3 (05:53→17:26)
[2019-10-06] MEDS: MIDODRINE HCL 5MG TABLET PO SCH ×2 (05:53→13:33)
[2019-10-06] MEDS: SODIUM CHLORIDE 0.9% 1,000 ML IV SCH ×2 (05:59→13:33)
[2019-10-06] MEDS: ZINC SULFATE 220 MG ( 50 ) CAPSULE PO SCH (08:41)
[2019-10-06] MEDS: LEVETIRACETAM 500MG/5ML CUP PO SCH (08:41)
[2019-10-06] MEDS: FLUDROCORTISONE ACETATE 0.1MG TABLET PO SCH (08:41)
[2019-10-06] MEDS: ASCORBIC ACID 500 MG TABLET PO SCH (08:41)
[2019-10-06] MEDS: FAMOTIDINE 20MG TABLET PO SCH (08:41)
[2019-10-06] MEDS: ENOXAPARIN 60MG/0.6ML SYR SUBCUT SCH (08:42)
[2019-10-06] MEDS: SODIUM CHLORIDE 1000MG TABLET PO SCH ×2 (08:44→17:26)
[2019-10-06] MEDS: ASPIRIN 325MG EC TABLET PO SCH (08:44)
== END 2019-10-06 20:45 | DRG 870 ==
LOC: ER 03:53 → 7WST 05:43 → SUPCPDRO 06:23 → ENRESERV 07:28 → MICUSO 23:40 → CVICU 09-27 03:35 → 5EST 10-02 16:50
PROVIDERS: ADMIT Internal Medicine; ATTEND Internal Medicine
PROC: 5A1955Z Respiratory Ventilation, Greater than 96 Consecutive Hours (ICD-10-PCS; principal; 2019-09-26)
PROC: 0BH17EZ Insertion of Endotracheal Airway into Trachea, Via Natural or Artificial Opening (ICD-10-PCS; 2019-09-26)
PROC: 02HV33Z Insertion of Infusion Device into Superior Vena Cava, Percutaneous Approach (ICD-10-PCS; 2019-09-26)
PROC: B548ZZA Ultrasonography of Superior Vena Cava, Guidance (ICD-10-PCS; 2019-09-26)
DX: A41.9 Sepsis, unspecified organism (principal); J18.9 Pneumonia, unspecified organism; J96.01 Acute respiratory failure with hypoxia; E43 Unspecified severe protein-calorie malnutrition; G92 Toxic encephalopathy; N17.0 Acute kidney failure with tubular necrosis; R65.21 Severe sepsis with septic shock; E87.1 Hypo-osmolality and hyponatremia; I42.9 Cardiomyopathy, unspecified; J44.0 Chronic obstructive pulmonary disease with (acute) lower respiratory infection; E87.3 Alkalosis; K56.699 Other intestinal obstruction unspecified as to partial versus complete obstruction; D63.8 Anemia in other chronic diseases classified elsewhere; F20.9 Schizophrenia, unspecified; I10 Essential (primary) hypertension; Z20.828 Contact with and (suspected) exposure to other viral communicable diseases; L89.516 Pressure-induced deep tissue damage of right ankle; K21.9 Gastro-esophageal reflux disease without esophagitis; E86.1 Hypovolemia; E87.6 Hypokalemia; Z68.21 Body mass index [BMI] 21.0-21.9, adult; I69.391 Dysphagia following cerebral infarction; Z93.1 Gastrostomy status; Z79.899 Other long term (current) drug therapy
CPT/HCPCS: 36415; 36600; 71045; 76937; 80048; 80053; 80061; 80202; 81003; 82375; 82550; 82553; 82805; 83036; 83605; 83735; 84100; 84145; 84478; 84484; 85025; 87070; 87077; 87186; 87635; 93005; 93970; 94003; 94640; 99291; C1725; J1120; J1650; J1885; J2060; J2543; J2704; J3370; J3480; J3490; J7030; J7060; J7608; P9047